=== PATIENT | female | born 1950 | race Caucasian/White ===

== ENCOUNTER → 2020-06-10 16:18 | Outpatient (BNVA) | payer MEDICARE, SELFPAY | PROVIDERS: Family Provider Family Medicine; PCP Family Medicine; Visit Provider Emergency Medicine | DX: R68.89 Other general symptoms and signs (principal); Z11.59 Encounter for screening for other viral diseases | CPT/HCPCS: 87400; 87635 ==

== ENCOUNTER 2022-05-14 18:49 | Emergency (ER) | payer MEDICARE, SELFPAY ==
[2022-05-14 18:55] VITALS: BP 148/78; PULSE 62; RESP 20; TEMP 37; O2SAT 96; BMI 40.6
--- NOTE | 2022-05-14 20:20 | ED_ITS ---
HPI - General Adult General: Chief complaint: General Medical Stated complaint: High Blood Pressure Time Seen by Provider: 05/14/22 20:20 History of Present Illness: Ms Webb is a 71-year-old lady with significant past medical history of anxiety and hypertension who presents to the emergency department due to concern over high blood pressure readings. She does report compliance with her medication regimen. She has recently completed a course of steroids and has noticed increased hunger. Over the past few days she has noticed far increased blood pressure compared to normal with systolic values greater than 200. This may also be exacerbated by stress she reports as she has had numerous stressors that has increased her anxiety. Symptoms currently improved with Klonopin taken earlier. Denies associated symptoms of hypertensive emergency with high blood pressure other than perhaps mild generalized weakness which is nonfocal and nausea. Overall course of symptoms has improved. Intensity at worst was mild to moderate. No other specific changes in health, exacerbating, or alleviating factors identified. Onset (ago): day(s) Relieving factors: medication Exacerbating factors: other Associated symptoms: Reports no associated symptoms Review of Systems General: Reports: 10 or more systems reviewed and unremarkable except in HPI and below PFSH ED PFSH: Medical History Asthma History of anxiety History of hypertension Surgical History H/O: hysterectomy History of hip surgery Social History Smoking and tobacco status: former smoker Alcohol intake: current Alcohol intake frequency: holidays/special occasions only History of recent travel: No Female Reproductive History: Spontaneous abortions: No Physical Exam Const: COMMON NORMALS: alert GENERAL APPEARANCE: cooperative and well developed HENMT: COMMON NORMALS: normocephalic and atraumatic HEAD & SCALP: normocephalic and atraumatic Eye: COMMON NORMALS: conjunctivae normal CONJUNCTIVA: Yes conjunctivae normal SCLERA: sclerae normal Neck/C-Spine: COMMON NORMALS: supple GENERAL: Yes trachea midline Resp: COMMON NORMALS: clear to auscultation bilaterally EFFORT & INSPECTION: Yes able to speak in complete sentences AUSCULTATION: clear to auscultation bilaterally Cardio: COMMON NORMALS: regular rate and regular rhythm RATE: regular rate RHYTHM: regular rhythm GI: COMMON NORMALS: Soft to palpation PALPATION: Yes Soft to palpation and No Tenderness to palpation present (GI) Extremity: GENERAL: Yes normal exam except as noted and No edema Neuro: COMMON NORMALS: moves all extremities SENSORIUM/ORIENTATION: Yes alert and No Orientation impaired Psych: COMMON NORMALS: mental status grossly normal and Normal thought process present THOUGHT PROCESS: Normal thought process present Course ED course: - Patient was seen and evaluated by me at bedside - Patient placed on cardiac monitors, IV access obtained - Initial evaluation notable for exam as above. EKG shows nonspecific ST segment abnormalities, no STEMI, sinus rhythm. - Labs and xrays personally interpreted by me -Patient's blood pressure appears improved however given pulm readings further evaluation is appropriate - Labs notable for no evidence of endorgan dysfunction - Imaging notable for no lobar consolidation or pneumothorax - Upon serial reexamination after treatment the patient was improved. She did request her home clonazepam and fluoxetine which were administered - Based on patient history, evaluation, and testing as interpreted the most likely cause of the patient's condition is hypertension of uncertain etiology improved upon ED evaluation - The results of ED evaluation were discussed with the patient including prescriptions and/or symptomatic cares (if applicable) including appropriate and responsible use, followup plan, and return precautions. The patient verbalized understanding and felt safe for discharge. - Patient discharged in satisfactory condition. Note: Click bubbles or prepopulated bee in note writing are used for assistance with data collection and billing and are inherently more limited than narrative and other text portions of this note. Please use narrative for additional clinical history and defer to narrative/free test for any case of contradictory information. If information appears in only free text or click bubble it should be considered present or absent as reported. Please contact note technical writer and editor f or clarifications of clinical information or contradictory information. MDM is a brief summary, contradictory or erroneous seeming information should be clarified and full note should be reviewed. Vital Signs: Vital signs: Vital Signs Temperature 98.6 F 05/14/22 18:55 Pulse Rate 76 05/14/22 23:39 Respiratory Rate 16 05/14/22 23:39 Blood Pressure 163/89 05/14/22 23:39 Pulse Oximetry 93 05/14/22 23:39 Oxygen Delivery Me thod 05/14/22 22:00 MDM - General Adult Medical Decision Making 71-year-old lady presenting with hypertension. Improved readings during ED evaluation. No evidence of endorgan dysfunction. Satisfactory for outpatient management. Medical Records I reviewed the patient's medical records. Lab Data I reviewed the patient's lab results. : 05/14/22 20:40 05/14/22 20:40 Radiology Impressions Chest X-Ray 05/14/22 20:29 IMPRESSION: 1. Negative for infiltrate. 2. Cardiomegaly. Laboratory Results WBC 8.0 10^3/uL (4.0-10.0) 05/14/22 20:40 RBC 4.85 10^6/uL (4.1-5.3) 05/14/22 20:40 Hgb 13.9 g/dL (11.5-15.3) 05/14/22 20:40 Hct 42.6 % (37.0-47.0) 05/14/22 20:40 MCV 87.8 fl (81-99) 05/14/22 20:40 MCH 28.7 pg (28.0-34.0) 05/14/22 20:40 MCHC 32.6 g/dL (30.0-36.0) 05/14/22 20:40 RDW 13.6 % (12.1-15.1) 05/14/22 20:40 Plt Count 204 10^3/cmm (130-400) 05/14/22 20:40 MPV 9.2 fL (7.4-10.4) 05/14/22 20:40 Neut % (Auto) 66.3 % 05/14/22 20:40 Lymph % (Auto) 23.7 % 05/14/22 20:40 [place] % (Auto) 6.0 % 05/14/22 20:40 Eos % (Auto) 3.3 % 05/14/22 20:40 Baso % (Auto) 0.6 % 05/14/22 20:40 Neut # (Auto) 5.30 10^3/uL (1.8-7.7) 05/14/22 20:40 Lymph # (Auto) 1.9 10^3/uL (0.8-4.8) 05/14/22 20:40 [place] # (Auto) 0.5 10^3/uL (0.2-0.9) 05/14/22 20:40 Eos # (Auto) 0.3 10^3/uL (0.0-0.8) 05/14/22 20:40 Baso # (Auto) 0.1 10^3/uL (0.0-0.1) 05/14/22 20:40 Nucleated RBC % (auto) 0 % 05/14/22 20:40 Nucleated RBCs # 0.0 /100WBC 05/14/22 20:40 Sodium 135 mmol/L (136-145) L 05/14/22 20:40 Potassium 4.0 mmol/L (3.5-5.1) 05/14/22 20:40 Chloride 96 mmol/L (98-107) L 05/14/22 20:40 Carbon Dioxide 28 mmol/L (22-29) 05/14/22 20:40 Anion Gap 15.0 (5-19) 05/14/22 20:40 BUN 16 mg/dL (8-23) 05/14/22 20:40 Creatinine 0.5 mg/dL (0.5-0.9) 05/14/22 20:40 GFR Calculation 122.0 mL/min (90-130) 05/14/22 20:40 Glucose 99 mg/dL (65-115) 05/14/22 20:40 Calculated Osmolality 281 mOsm/kg (285-295) L 05/14/22 20:40 Calcium 9.4 mg/dL (8.5-10.5) 05/14/22 20:40 Total Bilirubin 0.3 mg/dL (0.15-1.2) 05/14/22 20:40 AST 23 U/L (0-32) 05/14/22 20:40 ALT 25 U/L (0-33) 05/14/22 20:40 Alkaline Phosphatase 111 U/L (35-105) H 05/14/22 20:40 Troponin T Baseline 14 ng/L (0-10) H 05/14/22 20:40 Troponin T 120 Minute 13.02 ng/L (0-10) H 05/14/22 22:36 Delta Troponin T -0.98 ABS# (0-10) L 05/14/22 22:36 NT-Pro-B Natriuret Pep 281 pg/mL (0-125) H 05/14/22 20:40 Total Protein 6.8 g/dL (6.6-8.7) 05/14/22 20:40 Albumin 3.7 g/dL (3.5-5.2) 05/14/22 20:40 Globulin 3.1 g/dL (1.3-4.6) 05/14/22 20:40 Discharge Plan Discharge Patient Disposition: Home Clinical Impression: Hypertension, Anxiety Condition: Stable Prescriptions: New amlodipine 5 mg tablet 5 mg PO DAILY Qty: 30 0RF No Action fluticasone propionate [Allergy Relief (fluticasone)] 50 mcg/actuation spray,suspension 2 spray INTRANASAL DAILY Rx Instructions: administer into each nostril albuterol sulfate [Ventolin HFA] 90 mcg/actuation HFA aerosol inhaler 2 puff INHALATION Q6H PRN fluticasone propion-salmeterol [Advair Diskus] 100-50 mcg/dose blister with device 1 puff INHALATION BID albuterol sulfate 2.5 mg /3 mL (0.083 %) solution for nebulization 2.5 mg INHALATION Q4H PRN hydrochlorothiazide 25 mg tablet 25 mg PO DAILY fluoxetine 20 mg capsule 20 mg PO DAILY ibuprofen 800 mg tablet 800 mg PO Q8H Qty: 90 1RF amoxicillin-pot clavulanate 875-125 mg tablet 1 tab PO BID 10 Days Qty: 20 0RF Discharge Orders: Discharge ED (Routine); Ordered 05/14/22 Ordered By: Nabil Barajas Referrals: Joseph Brenner [Primary Care Provider] - Discharge Diet: Usual diet Discharge Activity: Increase activity as tolerated Patient Instructions: Stress (ED), Hypertension (ED) Activity Restrictions/Additional Instructions: Thank you for visiting the emergency department. You were seen and evaluated for high blood pressure. The exact cause of the symptoms is unclear though we are pleased that this improved prior to your arrival in the emergency department. I will add amlodipine to your medication regimen. Please follow-up with your primary care provider and keep a log as discussed for further management. Return to the emergency department for anything that you are concerned about and feel needs emergency department evaluation. Coding Level of Care Code ED Obstetrics Nurse Practitioner for Margaret Fwd Exam Comprehensive
[2022-05-14 20:21] VITALS: BP 166/86; PULSE 72; RESP 17; O2SAT 95
--- NOTE | 2022-05-14 20:29 | XRR_ITS ---
PROCEDURE INFORMATION: Exam: XR Chest Exam date and time: 05/14/2022 8:36 PM Age: 71 years old Clinical indication: Other: High blood pressure; Prior surgery; Surgery date: 6+ months; Surgery type: Breast reduction; Additional info: Hypertension TECHNIQUE: Imaging protocol: Radiologic exam of the chest. Views: 1 view. COMPARISON: CR XR chest 1V [id number] 08/27/2018 11:01 PM FINDINGS: Lungs: Unremarkable. No consolidation. Pleural spaces: Unremarkable. No pleural effusion. No pneumothorax. Heart/Mediastinum: Cardiomegaly. Bones/joints: Unremarkable. XR/XR chest 1V portable [id number] IMPRESSION: 1. Negative for infiltrate. 2. Cardiomegaly.
[2022-05-14 20:44] VITALS: BP 148/84; PULSE 69; RESP 16; O2SAT 92
[2022-05-14 20:51] LABS: Basophils # 0.1 10^3/uL (0.0-0.1); Basophils % 0.6 %; Eosinophils # 0.3 10^3/uL (0.0-0.8); Eosinophils % 3.3 %; Hematocrit 42.6 % (37.0-47.0); Hemoglobin 13.9 g/dL (11.5-15.3); Lymphocytes # 1.9 10^3/uL (0.8-4.8); Lymphocytes % 23.7 %; Mean Corpuscular HGB Conc 32.6 g/dL (30.0-36.0); Mean Corpuscular Hemoglobin 28.7 pg (28.0-34.0); Mean Corpuscular Volume 87.8 fl (81-99); Mean Platelet Volume 9.2 fL (7.4-10.4); Monocytes # 0.5 10^3/uL (0.2-0.9); Neutrophils % 66.3 %; Nucleated Red Blood Cells % 0 %; Platelet Count 204 10^3/cmm (130-400); Red Blood Count 4.85 10^6/uL (4.1-5.3); Red Cell Distribution Width 13.6 % (12.1-15.1)
[2022-05-14 21:16] LABS: Troponin(5th) Baseline 14 ng/L (0-10)
[2022-05-14 21:23] LABS: Alanine Aminotransferase 25 U/L (0-33); Albumin Level 3.7 g/dL (3.5-5.2); Alkaline Phosphatase 111 U/L (35-105); Aspartate Amino Transferase 23 U/L (0-32); Blood Urea Nitrogen 16 mg/dL (8-23); Calcium 9.4 mg/dL (8.5-10.5); Carbon Dioxide 28 mmol/L (22-29); Chloride 96 mmol/L (98-107); Globulin 3.1 g/dL (1.3-4.6); Glucose 99 mg/dL (65-115); NT Pro B Type Natriuretic Pept 281 pg/mL (0-125); Osmolality Calculated 281 mOsm/kg (285-295); Sodium 135 mmol/L (136-145); Total Bilirubin 0.3 mg/dL (0.15-1.2); Total Protein 6.8 g/dL (6.6-8.7)
[2022-05-14 21:50] VITALS: BP 131/74; PULSE 80; RESP 20; O2SAT 92
[2022-05-14 22:00] VITALS: PULSE 80; O2SAT 94
--- NOTE | 2022-05-14 22:21 | ECG_ITS ---
[facility] Test Date: 2022-05-14 Pat Name: Josselyn Webb Department: Room: Gender: Female Sandblast Operator: : 1950 Requested By: Nabil Barajas Order Number: [id number] Milly MD: Colton Vences M.D. Measurements Intervals [place] Rate: 72 P: 51 [place]: 204 QRS: 38 QRSD: 94 T: 27 QT: 369 QTc: 405 Interpretive Statements SINUS RHYTHM NONSPECIFIC ST & T-WAVE ABNORMALITY Compared to ECG 08/27/2018 23:24:34 No significant changes Electronically Signed On 05-16-2022 8:18:54 CDT by Colton Vences M.D. [id number]
[2022-05-14 23:00] LABS: Troponin 5 2HR 13.02 ng/L (0-10)
[2022-05-14 23:09] LABS: Troponin 5 2HR Delta -0.98 ABS# (0-10)
[2022-05-14] MEDS: CLONazepam 0.5 mg Tablet PO (23:19)
[2022-05-14] MEDS: fluoxetine 20 mg Capsule 40 MG PO (23:19)
[2022-05-14 23:39] VITALS: BP 163/89; PULSE 76; RESP 16; O2SAT 93
== END 2022-05-14 23:40 | disposition home or self-care (01) ==
PROVIDERS: Emergency Provider Emergency Medicine; PCP Family Medicine
DX: I10 Essential (primary) hypertension (principal); F41.9 Anxiety disorder, unspecified; Z87.891 Personal history of nicotine dependence
CPT/HCPCS: 71045; 80053; 83880; 84484; 85025; 93005; 99285

== ENCOUNTER → 2023-03-24 12:28 | Outpatient (BNVA) | payer MEDICARE, SELFPAY | PROVIDERS: PCP Family Medicine; Visit Provider Nurse Practitioner Family | DX: R39.9 Unspecified symptoms and signs involving the genitourinary system (principal); R31.9 Hematuria, unspecified | CPT/HCPCS: 81000; 87086 ==

== ENCOUNTER → 2023-04-05 10:59 | Outpatient (BNVA) | payer MEDICARE, SELFPAY | PROVIDERS: PCP Family Medicine; Visit Provider Otolaryngology | DX: Z71.1 Person with feared health complaint in whom no diagnosis is made (principal); E66.9 Obesity, unspecified; Z68.41 Body mass index [BMI] 40.0-44.9, adult | CPT/HCPCS: 99202; 99203 ==

== ENCOUNTER 2024-10-04 18:40 | Emergency (ER) | payer MEDICARE, SELFPAY ==
[2024-10-04 18:45] VITALS: BP 161/82; PULSE 64; RESP 18; TEMP 36.3; O2SAT 96
--- NOTE | 2024-10-04 19:19 | ECG_ITS ---
[facility] Test Date: 2024-10-04 Pat Name: Josselyn Webb Department: Room: Gender: Female Book Agent: : 1950 Requested By: Maxime Epstein Order Number: [id number] Reading MD: Measurements Intervals [place] Rate: 56 P: 56 [place]: 196 QRS: 47 QRSD: 98 T: 17 QT: 410 QTc: 396 Interpretive Statements SINUS BRADYCARDIA POSSIBLE LEFT ATRIAL ENLARGEMENT [-0.1mV P-WAVE IN V1/V2] LOW QRS VOLTAGE IN PRECORDIAL LEADS [QRS DEFLECTION < 1.0 mV IN CHEST LEADS] NONSPECIFIC T-WAVE ABNORMALITY [email or web address]
--- NOTE | 2024-10-04 19:19 | W.ED.PSYCHS ---
HPI - Psych General: Chief Complaint: Psychiatric Symptoms Stated Complaint: Depressed Time Seen by Provider: 10/04/24 18:49 History of Present Illness: 74-year-old female with a history of depression. She has 1 prior admission several years ago in [place] for depression. She presents after an argument with her 91-year-old who is in poor health. She became angry, frustrated, and her depression is increased. She has had thoughts of suicide, but has not formed a plan or acted on them because of her Evangelical beliefs mainly. He is here for help. No active hallucinations. Related Data Home Medications ?Medication ?Instructions ?Recorded ?Confirmed albuterol sulfate 2.5 mg/3 mL 2.5 mg inhalation Q4H PRN 09/12/19 04/19/24 (0.083 %) solution for nebulization albuterol sulfate 90 mcg/actuation 2 puff inhalation Q6H PRN 09/12/19 04/19/24 aerosol inhaler (Ventolin HFA) fluticasone 100 mcg-salmeterol 50 1 puff inhalation BID 09/12/19 04/19/24 mcg/dose blistr powdr for inhalation (Advair Diskus) hydrochlorothiazide 25 mg tablet 25 mg PO DAILY 09/12/19 04/19/24 fluticasone propionate 50 2 spray intranasal DAILY 06/10/20 04/19/24 mcg/actuation nasal spray,suspension (Allergy Relief (fluticasone)) cetirizine 10 mg capsule (All Day 10 mg PO DAILY PRN 04/05/23 04/19/24 Allergy (cetirizine)) cholecalciferol (vitamin D3) 125 125 mcg PO DAILY 04/05/23 04/19/24 mcg (5,000 unit) capsule clonazepam 0.5 mg tablet 0.5 mg PO TID 04/05/23 04/19/24 losartan 50 mg tablet 50 mg PO DAILY 04/05/23 04/19/24 rosuvastatin 10 mg tablet 10 mg PO DAILY 04/05/23 04/19/24 tramadol 50 mg tablet 50 mg PO BID PRN 04/05/23 04/19/24 famotidine 20 mg tablet 20 mg PO DAILY 04/19/24 04/19/24 potassium chloride 20 mEq 20 meq PO DAILY 04/19/24 04/19/24 tablet,extended release(part/cryst) Previous Rx's ?Medication ?Instructions ?Recorded ibuprofen 800 mg tablet 800 mg PO Q8H #90 tabs 09/12/19 amlodipine 5 mg tablet 5 mg PO DAILY #30 tabs 05/14/22 fluoxetine 20 mg capsule 20 mg PO TID #30 caps 04/19/24 Allergies Allergy/AdvReac Type Severity Reaction Status Date / Time benzonatate (From Tessalon Allergy Intermediate ADR-Agitate Verified 10/04/24 19:01 Maryam) d lisinopril Allergy Mild ALGY-Rash Verified 10/04/24 19:01 montelukast (From Singulair) Allergy Mild Unknown Verified 10/04/24 19:01 prednisone AdvReac Mild ADR-Irritab Verified 10/04/24 19:01 le [facility] ED PFSH: Medical History History of anxiety History of hypertension Asthma Surgical History Status post breast reduction History of hip surgery H/O: hysterectomy Social History Smoking and tobacco/nicotine status: former use of tobacco/nicotine Alcohol intake: current Alcohol intake frequency: holidays/special occasions only Substance/Drug Use: never Female Reproductive History: Spontaneous abortions: No Physical Exam Const: COMMON NORMALS: no acute distress GENERAL APPEARANCE: cooperative; not well kempt, not ill appearing and not frail appearing HENMT: COMMON NORMALS: normocephalic, atraumatic and Normal external nose present HEAD & SCALP: normocephalic and atraumatic FACE & SINUS: normal facial exam and face symmetric NOSE: Normal external nose present Eye: COMMON NORMALS: Equal, round and reactive pupils present and EOMs intact bilaterally PUPIL: Yes Equal, round and reactive pupils present Neck/C-Spine: GENERAL: Yes trachea midline Chest: CHEST: Yes Symmetrical chest wall rise Resp: COMMON NORMALS: normal respiratory effort, No retractions, No use of accessory muscles and clear to auscultation bilaterally AUSCULTATION: clear to auscultation bilaterally Cardio: COMMON NORMALS: regular rate and regular rhythm RATE: regular rate RHYTHM: regular rhythm GI: COMMON NORMALS: Normal to inspection, nondistended, normoactive bowel sounds present Extremity: COMMON NORMALS: no pedal edema Neuro: LASHANDA COMA SCALE: document GCS findings Lashanda coma scale eye opening: Spontaneous [place]anda coma scale verbal response: Orientated [place] coma scale motor response: [place] commands Lashanda coma scale total score: 15 SENSORY EXAM: Yes extremities (intact) Psych: COMMON NORMALS: speech normal APPEARANCE: No well kempt SPEECH: Yes normal speech Skin: COMMON NORMALS: no rashes or lesions noted GENERAL SKIN EXAM: no rashes or lesions noted Course Vital Signs: Vital signs: Vital Signs Temperature 97.4 F L 10/04/24 18:45 Pulse Rate 65 10/05/24 00:00 Respiratory Rate 16 10/05/24 00:00 Blood Pressure 156/74 10/05/24 00:00 Pulse Oximetry 95 10/05/24 00:00 Oxygen Delivery Me thod Room Air 10/04/24 18:45 MDM - Psych Medical Decision Making [place], awake, and alert 74-year-old female with depression, and at least passive thoughts of suicide. She would benefit from inpatient admission, evaluation and treatment. Medically she appears stable. This patient has changed her mind. She is in fact no longer suicidal. She would like to go home and see her . She maintains that she will not harm herself or anyone else. She will be allowed discharge. She remains medically stable. Lab Data 10/04/24 19:38 10/04/24 19:38 Laboratory Results WBC 6.45 10^3/uL (3.29-11.43) 10/04/24 19:38 RBC 4.88 10^6/uL (3.85-5.65) 10/04/24 19:38 Hgb 14.10 g/dL (11.27-16.99) 10/04/24 19:38 Hct 44.4 % (36-47) 10/04/24 19:38 MCV 91.0 fl (85-98) 10/04/24 19:38 MCH 28.9 pg (27-33) 10/04/24 19:38 MCHC 31.8 g/dL (30-55) 10/04/24 19:38 RDW 13.3 % (12.1-15.1) 10/04/24 19:38 Plt Count 216 10^3/cmm (157-399) 10/04/24 19:38 MPV 10.6 fL (7.4-10.4) H 10/04/24 19:38 Neut % (Auto) 58.8 % 10/04/24 19:38 Lymph % (Auto) 30.5 % 10/04/24 19:38 [place] % (Auto) 6.8 % 10/04/24 19:38 Eos % (Auto) 2.8 % 10/04/24 19:38 Baso % (Auto) 0.8 % 10/04/24 19:38 Neut # (Auto) 3.79 10^3/uL (1.8-7.7) 10/04/24 19:38 Lymph # (Auto) 2.0 10^3/uL (0.8-4.8) 10/04/24 19:38 [place] # (Auto) 0.4 10^3/uL (0.2-0.9) 10/04/24 19:38 Eos # (Auto) 0.2 10^3/uL (0.0-0.8) 10/04/24 19:38 Baso # (Auto) 0.1 10^3/uL (0.0-0.1) 10/04/24 19:38 Nucleated RBC % (auto) 0 % 10/04/24 19:38 Nucleated RBCs # 0.0 /100WBC 10/04/24 19:38 Sodium 136 mmol/L (136-145) 10/04/24 19:38 Potassium 3.8 mmol/L (3.5-5.1) 10/04/24 19:38 Chloride 95 mmol/L (98-107) L 10/04/24 19:38 Carbon Dioxide 33 mmol/L (22-29) H 10/04/24 19:38 Anion Gap 11.8 (5-19) 10/04/24 19:38 BUN 15 mg/dL (8-23) 10/04/24 19:38 Creatinine 0.5 mg/dL (0.5-0.9) 10/04/24 19:38 GFR Calculation Not Reportable 10/04/24 19:38 Glucose 99 mg/dL (65-115) 10/04/24 19:38 Calculated Osmolality 283 mOsm/kg (285-295) L 10/04/24 19:38 Calcium 9.5 mg/dL (8.5-10.5) 10/04/24 19:38 Total Bilirubin 0.4 mg/dL (0.15-1.2) 10/04/24 19:38 AST 22 U/L (0-32) 10/04/24 19:38 ALT 21 U/L (0-33) 10/04/24 19:38 Alkaline Phosphatase 105 U/L (35-105) 10/04/24 19:38 Total Protein 6.7 g/dL (6.6-8.7) 10/04/24 19:38 Albumin 4.0 g/dL (3.5-5.2) 10/04/24 19:38 Globulin 2.7 g/dL (1.3-4.6) 10/04/24 19:38 TSH 1.76 uIU/mL (0.27-4.20) 10/04/24 19:38 Urine Color Yellow (Yellow) 10/04/24 19:32 Urine Appearance Clear (CLEAR) 10/04/24 19:32 Urine pH 7.0 (5-7) 10/04/24 19:32 Ur Specific [place] 1.012 (1.005-1.030) 10/04/24 19:32 Urine Protein Negative (Negative) 10/04/24 19:32 Urine Glucose (UA) Negative (Normal) 10/04/24 19:32 Urine Ketones Negative (Negative) 10/04/24 19:32 Urine Blood Negative (Negative) 10/04/24 19:32 Urine Nitrate Negative (Negative) 10/04/24 19:32 Urine Bilirubin Negative (Negative) 10/04/24 19:32 Urine Urobilinogen 0.2 mg/dL (Negative) 10/04/24 19:32 Ur Leukocyte Esterase Negative (Negative) 10/04/24 19:32 Amorphous Sediment Not Reportable 10/04/24 19:32 Salicylates 0.5 mg/dL (3-10) L 10/04/24 19:38 Urine Opiates Screen Negative ng/mL (Negative) 10/04/24 19:32 Acetaminophen 7.5 ug/mL (10-30) L 10/04/24 19:38 Ur Barbiturates Screen Negative ng/mL (Negative) 10/04/24 19:32 Ur Phencyclidine Scrn Negative ng/mL (Negative) 10/04/24 19:32 Ur Amphetamines Screen Negative ng/mL (Negative) 10/04/24 19:32 U Benzodiazepines Scrn Positive ng/mL (Negative) H 10/04/24 19:32 Urine Cocaine Screen Negative ng/mL (Negative) 10/04/24 19:32 U Marijuana (THC) Screen Negative ng/mL (Negative) 10/04/24 19:32 Ethyl Alcohol < 10 mg/dL (0-10) 10/04/24 19:38 Influenza A (PCR) Negative (Negative) 10/04/24 19:35 Influenza Type B (PCR) Negative (Negative) 10/04/24 19:35 RSV (PCR) Negative (Negative) 10/04/24 19:35 SARS-CoV-2 (PCR) Negative (Negative) 10/04/24 19:35 No radiology studies performed this visit Discharge Plan Discharge Patient Disposition: Home Clinical Impression: Depression Condition: Stable Prescriptions: No Action fluticasone propionate [Allergy Relief (fluticasone)] 50 mcg/actuation spray,suspension 2 spray INTRANASAL DAILY Rx Instructions: administer into each nostril albuterol sulfate [Ventolin HFA] 90 mcg/actuation HFA aerosol inhaler 2 puff INHALATION Q6H PRN fluticasone propion-salmeterol [Advair Diskus] 100-50 mcg/dose blister with device 1 puff INHALATION BID albuterol sulfate 2.5 mg /3 mL (0.083 %) solution for nebulization 2.5 mg INHALATION Q4H PRN hydrochlorothiazide 25 mg tablet 25 mg PO DAILY ibuprofen 800 mg tablet 800 mg PO Q8H Qty: 90 1RF tramadol 50 mg tablet 50 mg PO BID PRN clonazepam 0.5 mg tablet 0.5 mg PO TID All Day Allergy (cetirizine) 10 mg capsule 10 mg PO DAILY PRN losartan 50 mg tablet 50 mg PO DAILY rosuvastatin 10 mg tablet 10 mg PO DAILY cholecalciferol (vitamin D3) 125 mcg (5,000 unit) capsule 125 mcg PO DAILY potassium chloride 20 mEq tablet,ER particles/crystals 20 meq PO DAILY famotidine 20 mg tablet 20 mg PO DAILY fluoxetine 20 mg capsule 20 mg PO TID Qty: 30 0RF amlodipine 5 mg tablet 5 mg PO DAILY Qty: 30 0RF Discharge Orders: Discharge ED (Routine); Ordered 10/05/24 Ordered By: Maxime Moon Referrals: Amari Castro MD [Primary Care Provider] - 1-3 days Patient Instructions: Depression (ED), Opioid Safety, Pain Management Activity Restrictions/Additional Instructions: Return for any thoughts or wishes to harm your self or anyone else. Call your doctor later this morning for a follow-up appointment. Print Language: Mongolian Coding Level of Care Code ED Flyer Maker for Margaret Sutherland
[2024-10-04 19:47] LABS: Add Urine Microscopic? NO
[2024-10-04 19:50] LABS: Bilirubin Urine Negative (Negative); Blood Urine Negative (Negative); Glucose Urine UA Negative (Normal); Ketones Urine Negative (Negative); Leukocyte Esterase Urine Negative (Negative); Nitrate Urine Negative (Negative); Protein Urine Negative (Negative); Specific Gravity, Urine 1.012 (1.005-1.030); Urine Appearance Clear (CLEAR); Urine Color Yellow (Yellow); Urobilinogen Urine 0.2 mg/dL (Negative)
[2024-10-04 19:58] LABS: Amphetamines Screen Urine Negative (Negative); Barbiturates Screen Urine Negative (Negative); Benzodiazepines Screen Urine Positive (Negative); Cocaine Screen Urine Negative (Negative); Opiate Screen Urine Negative (Negative); PCP Screen Urine Negative (Negative); THC Screen Urine Negative (Negative)
[2024-10-04 20:07] LABS: Basophils # 0.1 10^3/uL (0.0-0.1); Basophils % 0.8 %; Eosinophils # 0.2 10^3/uL (0.0-0.8); Eosinophils % 2.8 %; Hematocrit 44.4 % (36-47); Lymphocytes % 30.5 %; Mean Corpuscular HGB Conc 31.8 g/dL (30-55); Mean Corpuscular Hemoglobin 28.9 pg (27-33); Mean Platelet Volume 10.6 fL (7.4-10.4); Monocytes # 0.4 10^3/uL (0.2-0.9); Monocytes % 6.8 %; Neutrophils # 3.79 10^3/uL (1.8-7.7); Neutrophils % 58.8 %; Nucleated Red Blood Cells % 0 %; Platelet Count 216 10^3/cmm (157-399); Red Blood Count 4.88 10^6/uL (3.85-5.65); Red Cell Distribution Width 13.3 % (12.1-15.1); White Blood Count 6.45 10^3/uL (3.29-11.43)
[2024-10-04 20:13] LABS: Acetaminophen 7.5 ug/mL (10-30); Alanine Aminotransferase 21 U/L (0-33); Alkaline Phosphatase 105 U/L (35-105); Anion Gap 11.8 (5-19); Aspartate Amino Transferase 22 U/L (0-32); Blood Urea Nitrogen 15 mg/dL (8-23); Calcium 9.5 mg/dL (8.5-10.5); Carbon Dioxide 33 mmol/L (22-29); Chloride 95 mmol/L (98-107); Creatinine Clr Calc Pharmacy 80.9228; Globulin 2.7 g/dL (1.3-4.6); Glucose 99 mg/dL (65-115); Osmolality Calculated 283 mOsm/kg (285-295); Potassium 3.8 mmol/L (3.5-5.1); Salicylate 0.5 mg/dL (3-10); Sodium 136 mmol/L (136-145); Thyroid Stimulating Hormone 1.76 uIU/mL (0.27-4.20); Total Bilirubin 0.4 mg/dL (0.15-1.2); Total Protein 6.7 g/dL (6.6-8.7)
[2024-10-04 20:14] LABS: Alcohol Level < 10 mg/dL (0-10)
[2024-10-04 20:45] LABS: Influenza A NEGATIVE (Negative); Influenza B NEGATIVE (Negative); Respiratory Syncytial Virus Ce NEGATIVE (Negative); SARS-CoV-2 PCR NEGATIVE (Negative)
[2024-10-04 20:49] LABS: Charge for UA Resulting for Rev
[2024-10-05] VITALS: BP 156/74; PULSE 65; RESP 16; O2SAT 95
== END 2024-10-05 03:02 | disposition home or self-care (01) ==
PROVIDERS: Emergency Provider Emergency Medicine; PCP Family Medicine
DX: F32.A Depression, unspecified (principal); Z11.52 Encounter for screening for COVID-19; Z87.891 Personal history of nicotine dependence; I10 Essential (primary) hypertension
CPT/HCPCS: 36415; 80053; 80306; 80307; 81003; 84443; 85025; 87637; 93005; 99284

== ENCOUNTER 2025-02-13 16:08 | Emergency (ER) | payer MEDICARE, SELFPAY ==
[2025-02-13 16:16] VITALS: BP 133/65; PULSE 60; RESP 16; TEMP 36.7; O2SAT 96; BMI 38.7
--- OUTSIDE RECORDS SUMMARY | 2025-02-13 16:17 | XMS_ITS | Encounter Summary ---
Author Organization [facility] Address [address] [facility] [place] [address] Care Team Providers Care Principal Gifts Officer Name Role Phone Joseph Brenner MD Primary Care Provider [phone] Encounter Details Date Type Department Care Team (Latest Contact Info) Description 05/19/2003 Outpatient Historical [address] [phone] Betty Moses MD [address], [id number] ACUTE FRONTAL SINUSITIS (Primary Dx); OTALGIA NOS Social History Tobacco Use Types Packs/Day Years Used Date Smoking Tobacco: Never Assessed Comments Unknown Sex and Gender Information Value Date Recorded Sex Assigned at Not on file 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
--- OUTSIDE RECORDS SUMMARY | 2025-02-13 16:17 | XMS_ITS | Encounter Summary ---
Author Organization [facility] Address [address] [facility] [place] [address] Care Team Providers Care Rerolling Machine Operator Name Role Phone Joseph Brenner MD Primary Care Provider [phone] Encounter Details Date Type Department Care Team (Latest Contact Info) Description 12/07/2005 Outpatient Historical [facility] Medicine [place] [address] [place] [phone] Ora Smith MD [facility] [place], [place] [id number] Unspecified Disorder of Skin and Subcutaneous Tissue (Primary Dx) Social History Tobacco Use Types Packs/Day Years Used Date Smoking Tobacco: Never Assessed Comments Unknown Sex and Gender Information Value Date Recorded Sex Assigned at Not on file 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
--- OUTSIDE RECORDS SUMMARY | 2025-02-13 16:17 | XMS_ITS | Encounter Summary ---
Author Organization [facility] Address [address] [facility] [place] [place] [address] Care Team Providers Care Inspector Toys Name Role Phone Joseph Brenner MD Primary Care Provider [phone] Encounter Details Date Type Department Care Team (Latest Contact Info) Description 09/11/2006 Outpatient Historical [facility] Medicine [place] [address] [place] [phone] Vicky Peterson MD [address] [place] [phone] Vaccine for influenza (Primary Dx) Social History Tobacco Use Types Packs/Day Years Used Date Smoking Tobacco: Never Assessed Comments Unknown Sex and Gender Information Value Date Recorded Sex Assigned at Not on file Legal Sex Female 6:33 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
--- OUTSIDE RECORDS SUMMARY | 2025-02-13 16:17 | XMS_ITS | Encounter Summary ---
Author Organization [facility] Address [address] [facility] [place] [address] Care Team Providers Care Telephone Lineworker Name Role Phone Joseph Brenner MD Primary Care Provider [phone] Encounter Details Date Type Department Care Team (Latest Contact Info) Description 08/16/2006 Outpatient Historical [facility] Medicine [place] [address] [place] [phone] Ora Smith MD [address] [place], [place] [id number] Contusion of Knee (Primary Dx); Sprain and Strain of Unspecified Site of Wrist Social History Tobacco Use Types Packs/Day Years Used Date Smoking Tobacco: Never Assessed Comments Unknown Sex and Gender Information Value Date Recorded Sex Assigned at Not on file Legal Sex Female 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
--- OUTSIDE RECORDS SUMMARY | 2025-02-13 16:17 | XMS_ITS | Encounter Summary ---
Author Organization [facility] Address [address] [place] [facility] [place] [address] Care Team Providers Care Legal Document Assistant Name Role Phone Joseph Brenner MD Primary Care Provider [phone] Encounter Details Date Type Department Care Team (Latest Contact Info) Description 12/14/2005 Outpatient Historical [facility] Medicine [place] [address] [place] [phone] Ora Smith MD [facility] [place], [place] [phone] Benign Neoplasm of Skin, Site Unspecified (Primary Dx) Social History Tobacco Use Types Packs/Day Years Used Date Smoking Tobacco: Never Assessed Comments Unknown Sex and Gender Information Value Date Recorded Sex Assigned at Not on file Legal Sex Female 6:33 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
--- OUTSIDE RECORDS SUMMARY | 2025-02-13 16:17 | XMS_ITS | Encounter Summary ---
Author Organization [facility] Address [address] [place] [address] Care Team Providers Care Seam Stay Stitcher Name Role Phone Joseph Brenner MD Primary Care Provider [phone] Encounter Details Date Type Department Care Team (Late st Contact Info) Description 03/13/[address] [facility] [address] [facility] [address] [place] [address] Erna Buchanan, MAILROOM SUPERVISOR [address] [place] [phone] Visit for screening mammogram (Primary Dx) Social History Tobacco Use Types Packs/Day Years Used Date Smoking Tobacco: Former Cigarettes 0.3 15 1 - 05/31/1989 Smokeless Tobacco: Never Alcohol Use Standard Drinks/Week Comments Yes 0 (1 standard drink = 0.6 oz pur e alcohol) 1 glass wine monthly Comments No Sex and Gender Information Value Date Recorded Sex Assigned at Not on file Legal Sex Female 6:33 AM APPLICATION SECURITY ARCHITECT Gender Identity Not on file Sexual Orientation Not on file documented as of this encounter Plan of Treatment Not on file documented as of this encounter Results * MAMMO PRIOR STUDY (10/15/2007 11:45 AM CDT) Narrative 03/13/2016 11:41 AM CDT This exam was auto finalized to allow images to be scanned to PACS. us Erna Buchanan MAILROOM SUPERVISOR DIAGNOSTIC IMAGING ORDERABLES Final Result * MAMMO PRIOR STUDY (09/11/2006 11:45 AM APPLICATION SECURITY ARCHITECT) Narrative 03/13/2016 11:42 AM CDT This exam was auto finalized to allow images to be scanned to PACS. us Erna J Dewayne MAILROOM SUPERVISOR DIAGNOSTIC IMAGING ORDERABLES Final Result documented in this encounter Visit Diagnoses Diagnosis Visit for screening mammogram Other screening mammogram Visit for screening mammogram Other screening mammogram Visit for screening mammogram- Primary Other screening mammogram documented in this encounter Care Teams Seam Stay Stitcher Relationship Specialty Start Date End Date Joseph Brenner MD [address] [place] [phone] PCP - General Family Practice 03/09/15 documented as of this encounter
--- OUTSIDE RECORDS SUMMARY | 2025-02-13 16:17 | XMS_ITS | Encounter Summary ---
Author Organization [facility] Address [address] [place] [facility] [place] [address] Care Team Providers Care Wound Nurse Name Role Phone Joseph Brenner MD Primary Care Provider [phone] Encounter Details Date Type Department Care Team (Latest Contact Info) Description 04/30/2003 Outpatient Historical [facility] Medicine [place] [address] [phone] Betty Moses MD [address], [address] ASTHMA UNSPECIFIED (Primary Dx); GENERALIZED ANXIETY DIS; NEUROTIC DEPRESSION Social History Tobacco Use Types Packs/Day Years Used Date Smoking Tobacco: Never Assessed Comments Unknown Sex and Gender Information Value Date Recorded Sex Assigned at Not on file Legal Sex Female 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
--- OUTSIDE RECORDS SUMMARY | 2025-02-13 16:17 | XMS_ITS | Encounter Summary ---
Author Organization [facility] Address [address] [place] [facility] [place] [address] Care Team Providers Care Gasser Machine Operator Name Role Phone Joseph Brenner MD Primary Care Provider [phone] Encounter Details Date Type Department Care Team (Latest Contact Info) Description 11/01/2006 Outpatient Historical [facility] [address] [place] [phone] Noel Moeller, FIRE HAZARD INSPECTOR [address] [place] [address] Other Malaise and Fatigue (Primary Dx); Allergic Rhinitis, Cause Unspecified Social History Tobacco Use Types Packs/Day Years Used Date Smoking Tobacco: Never Assessed Comments Unknown Sex and Gender Information Value Date Recorded Sex Assigned at Not on file Legal Sex Female 6:33 AM 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
--- OUTSIDE RECORDS SUMMARY | 2025-02-13 16:17 | XMS_ITS | Encounter Summary ---
Author Organization [facility] Address [address] 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 This is the recommendation of the National Cholesterol Education Program (NCEP-ATPIII). CHOLESTEROL 217(H) 0 - 200 mg/dL [facility] Comment: On 12/08/2007 [facility] changed the cholesterol reference range to 0-200 mg/dl. This is the recommendation of the National Cholesterol Education Program (NCEP-ATPIII). GLUCOSE 93 70 - 110 mg/dL [facility] CALCULATED TOTAL CHOLESTEROL TO HDL RATIO 4.02 3.27 - 4.44 [facility] TRIGLYCERIDE 97 0 - 150 mg/dL [facility] Comment: On 12/08/2007, [facility] changed the triglyceride reference range to 0-150 mg/dl. This is the recommendation of the National Cholesterol Education Program (NCEP-ATPIII). HDL 54 40 - 60 mg/dL [facility] Blood specimen (specimen) 12/09/2007 8:30 AM CDT 12/09/2007 4:01 PM CDT us Lowell Yousif MD CHEMISTRY ORDERABLES Final Res ult [facility] [address] [place] [address] documented in this encounter Visit Diagnoses Not on filedocumented in this encounter Care Teams Fund Accountant Relationship Specialty Start Date End Date Joseph Brenner MD [address] [place] [phone] PCP - General Family Practice 03/09/15 documented as of this encounter
--- OUTSIDE RECORDS SUMMARY | 2025-02-13 16:17 | XMS_ITS | Clinical Summary ---
Author Organization [facility] [address] [facility] Address [address] [facility] [place] [address] Care Team Providers Care Fighter Pilot Name Role Phone Joseph Brenner MD Primary Care Provider Allergies Active Allergy Reactions Criticality Noted Date Comments Lisinopril Rash Low 06/10/2008 Montelukast Other (See Comments) 11/24/2015 depression Naproxen Headache Low 11/12/2012 From 09/2012 to 11/2012 every time she takes the Naproxen 500 mg she gets a Headache in the evening. Prednisone Anxiety Low 09/22/2015 Shellfish Containing Products Swelling Medium 10/26/2015 Sneezing and runny nose Sulfa (Sulfonamide Antibiotics) Nausea and Vomiting Low 03/10/2009 Medications MULTI-VITAMIN PO Take 1 Tablet by mouth 2 times daily . Active OTHER Cpap with supplies. Continue present settings 1 Each 0 4 Active acetaminophen (TYLENOL) 325 mg tablet Take 325 mg by mouth every 4 hours as needed. Active blood glucose control, low (TRUE METRIX LEVEL 1) Solution Use to calibrate meter. 5 mL 5 8 Active Blood-Glucose Meter (TRUE METRIX AIR GLUCOSE METER) Use to check blood sugar as needed. 1 Device 8 Active TRUE METRIX AIR GLUCOSE METER Kit USE DIRECTED TO CHECK BLOOD SUGAR NEEDED 1 Kit 0 Active cetirizine (ZyrTEC) 10 mg tabletIndication s:Environmental allergies TAKE ONE TABLET AT BEDTIME 30 Tablet 3 0 Active omeprazole (PriLOSEC) 20 mg Capsule, Delayed Release(E.C.)Ind ications:Gastroe sophageal reflux disease without esophagitis TAKE ONE CAPSULE BY MOUTH DAILY 30 Capsule 3 0 Active aspirin-acetamin ophen-caffeine (EXCEDRIN EXTRA STRENGTH) 250-250-65 mg Tablet Take 1 Tablet by mouth every 4 hours as needed for Headaches. Active Lactobac no.30-Bifidobact no.4 (Ultimate Kathy Probiotic) 30 billion cell Capsule, Delayed Release(E.C.) Take 1 Capsule by mouth daily. Active nystatin (NYSTOP) 100,000 unit/gram powderIndication s:Skin yeast infection Apply to affected area 2 times daily. 1 Gram 1 0 Active albuterol (PROVENTIL,ROSALIND CRISTINO) 2.5 mg /3 mL (0.083 %) Solution for NebulizationIndi cations:Mild intermittent asthma without complication USE ONE VIAL IN NEBULIZER EVERY 4 HOURS NEEDED FOR SHORTNESS OF BREATH OR WHEEZING 300 mL 3 0 Active mupirocin (BACTROBAN) 2 % Ointment Apply to affected area 2 times daily. 22 Gram 3 0 Active fluticasone propionate (FLONASE) 50 mcg/spray [place], Suspension nasal inhaler Administer 2 Sprays in each nostril daily. 48 Gram 6 0 Active blood sugar diagnostic (True Metrix Glucose Test Strip) Strip Use to check blood sugar as needed. 200 Each 5 0 Active lancets (TRUEplus Lancets) 33 gauge Use as needed to obtain blood sample for testing 200 Each 0 Active alcohol (BD Single Use Swabs Regular) Pads, Medicated USE TO CLEAN FINGER BEFORE OBTAINING SAMPLE DIRECTED 300 Each 5 0 Active FLUoxetine (PROzac) 20 mg capsule TAKE 1 CAPSULE THREE TO FOUR TIMES PER DAY -- DOSE UPDATED. SEE PHONE ENCOUNTERS 06 29 20 180 Capsule 3 0 Active Advair Diskus 250-50 mcg/dose disk inhalerIndicatio ns:Mild intermittent asthma without complication 1 PUFF(S) TWICE A DAY 1 Each 5 1 Active losartan (COZAAR) 50 mg tablet TAKE ONE TABLET BY MOUTH EVERY DAY 90 Tablet 2 1 Active albuterol HFA 90 mcg inhalerIndicatio ns:Mild intermittent asthma without complication TAKE 2 PUFFS BY INHALATION EVERY 6 HOURS NEEDED FOR WHEEZING. SHOULD LAST LONGER THAN 1 MONTH. 18 Gram 1 1 Active fluconazole (DIFLUCAN) 150 mg tabletIndication s:Skin yeast infection Take 1 Tablet (150 mg) by mouth daily. Repeat in 72 hours if symptoms have not resolved. 2 Tablet 1 1 Active clonazePAM (KlonoPIN) 0.5 mg TabletIndication s:Generalized anxiety disorder Take 1 Tablet (0.5 mg) by mouth 3 times daily as needed for Anxiety. *NEEDS APPOINTMENT BEFORE NEXT REFILL* 60 Tablet 1 Active ibuprofen (MOTRIN) 800 mg tablet TAKE ONE TABLET BY MOUTH EVERY 6 HOURS NEEDED FOR PAIN (PAIN) 60 Tablet 1 Active hydroCHLOROthiaz felicitas 25 mg tablet TAKE 1 TABLET EVERY DAY 90 Tablet 1 Active Active Problems Problem Noted Date Diagnosed Date Allergic rhinitis 02/01/2020 Cat scratch 02/01/2020 Primary osteoarthritis of right knee 02/01/2020 Ambulates with cane 10/02/2019 Gait instability 10/02/2019 Vitamin D deficiency 11/05/2018 Mild intermittent asthma without complication Hypercholesteremia 11/11/2017 Hyperglycemia 11/11/2017 Chronic bilateral low back pain without sciatica 11/11/2017 Arthritis of right hip 05/31/2016 Severe obesity (BMI 35.0-39.9) with comorbidity 10/26/2015 QUINTON on CPAP 10/26/2015 RUQ abdominal pain 09/19/2010 Recurrent major depressive disorder, in partial remission 09/19/2010 Generalized anxiety disorder 09/19/2010 S/P hysterectomy 09/19/2010 Overview (12/25/2010): Had complete hyst Essential hypertension Gastroesophageal reflux disease without esophagi tis Resolved Problems Problem Noted Date Diagnosed Date Resolved Date Periprosthetic fracture of p roximal end of femur 05/31/2016 11/11/2017 Hyponatremia 11/09/2015 11/11/2017 Leukocytosis 11/09/2015 11/11/2017 Postoperative anemia due to acute blood loss 6 11/11/2017 Preoperative general physical examination 10/26/2015 02/09/2020 Primary osteoarthritis of left hip 10/26/2015 05/31/2016 Hypokalemia 10/26/2015 11/11/2017 Left hip pain 04/05/2015 11/11/2017 Asthma 06/15/2009 04/15/2018 Immunizations Immunization Administration Dates Next Due (ADACEL/BOOSTRIX)(10 YR UP) TDAP VACCINE, 0.5ML, IM 02/11/2017 (TDVAX)(7 YRS UP) TETANUS AN D DIPHTHERIA TOXOIDS, ADSORBED (2 LF OF TETANUS TOXOID AND 2 LF OF DIPHTHERIA TOXOID), 0.5ML (PF), IM 11/30/2005 INFLUENZA VACCINE HIGH DOSE QUADRIVALENT 65 YR UP PF IM 04/25/2020 INFLUENZA VACCINE QUADRIVALE NT 3 YR UP PF IM 05/15/2017 Influenza Seasonal Unspecifi ed Formulation IM 05/26/2019,06/11/2018,05/20/2013,2009,05/08/2009,09/11/2006 Influenza Vaccine Split 3+ Yrs IM 06/11/2011,01/2008 Influenza Vaccine Split 3+ Yrs PF IM 05/22/2016 Pneumococcal conjugate, unsp ecified formulation 06/03/2014 Zoster Vaccine Live SQ 05/08/2016 Family History Medical History Relation Name Comments Diabetes Brother Luciano Other Brother Luciano MRSA Cancer Father Luciano Colon Cancer Maternal Aunt Arthritis-rheumatoid Mother Alejandrina Cancer Mother Alejandrina bladder Cancer Paternal Grandmother Relation Name Status Comments Brother Luciano (Age 58) Daughter NONE Father Luciano (Age 58) Maternal Aunt Mother Alejandrina (Age 73) Paternal Grandmother Son NONE Social History Tobacco Use Types Packs/Day Years Used Date Smoking Tobacco: Former Cigarettes 0.3 15 1 - 05/31/1989 Smokeless Tobacco: Never Tobacco Cessation:Counseling Given: No Alcohol Use Standard Drinks/Week Comments Yes 0 (1 standard drink = 0.6 oz pur e alcohol) 1 glass wine monthly Comments No Sex and Gender Information Value Date Recorded Sex Assigned at Not on file Legal Sex Female 6:33 AM MATERIALS 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 Gender Identity Not on file Sexual Orientation Not on file Last Filed Vital Signs Vital Sign Reading Time Taken Comments Blood Pressure 120/74 05/12/2020 4:00 PM CDT Pulse 77 05/12/2020 4:00 PM CDT Temperature 37.2 C (98.9 F) 05/12/2020 4:00 PM CDT Respiratory Rate 16 05/12/2020 4:00 PM CDT Oxygen Saturation 95% 05/12/2020 4:00 PM CDT Inhaled Oxygen Concentration - - Weight 110.9 kg (244 lb 6.4 oz) 05/12/2020 4:00 PM CDT Height 170.2 cm (5' 7 ) 05/12/2020 4:00 PM CDT Body Mass Index 38.28 05/12/2020 4:00 PM CDT Plan of Treatment Health Maintenance Due Date Last Done Comments PNEUMOCOCCAL VACCINE 50+ YEA RS (1 of 2 - PCV) 1970 06/03/2014 COLORECTAL SCREENING 1996 FIT-DNA Q 3 years 1996 Flex Sig/CT Colonography Q 5 years 1996 RSV VACCINE (60+ or ) (1 - Risk 60-74 years 1-dose series) 2011 OSTEOPOROSIS SCREENING 2016 ZOSTER VACCINE (2 of 3) 07/03/2016 05/08/2016 BREAST CANCER SCREENING 06/25/2019 06/25/2018 Colorectal Cancer Screening 04/20/2021 FIT/FOBT Q 1 year 04/20/2021 04/20/2020 [place] Preventative Visit/Annual Wellness Visit 08/05/2024 06/04/2022, 07/07/2021, 04/25/2018 INFLUENZA VACCINE (#1) 2025 0, 05/26/2019, 06/11/2018, Additional history exists DTAP/TDAP/TD VACCINES (3 - T d or Tdap) 12/26/2029 12/27/2019, 02/11/2017, 11/30/2005 Medical Devices Implanted Type Area Java Spring Developer Device Identifier Shelf Expiration Date Model / Serial / Lot Shell Trdnt Psl Cornelius Cls 542-11-58g - [id number] Implanted:Qty: 1 on 11/07/2015 by Ramirez Alejandra MD at [facility] Hip Left: Hip [employer] 03/04/2020 [id number] / / [id number] Liner Trdnt X3 Poly 0d 623-00-44g - [id number] Implanted:Qty: 1 on 11/07/2015 by Ramirez Alejandra MD at [facility] Hip Left: Hip [employer] 02/01/2017 623-00-44G / / [id number] Stem Fem Secur-Fit Max #9 [id number] - [id number] Implanted:Qty: 1 on 11/07/2015 by Ramirez Alejandra MD at [facility] Hip Left: Hip [employer] 03/20/2020 [id number] / / [id number] Head Fem C-Taper Cocr Lfit 5 [id number] Implanted:Qty: 1 on 11/07/2015 by Ramirez Alejandra MD at [facility] Hip Left: Hip [employer] 03/04/2016 [id number] / / [id number] Screw Torx 6.5x50mm [id number] - [id number] Implanted:Qty: 1 on 11/07/2015 by Ramirez Alejandra MD at [facility] Screw Left: Hip [employer] 05/28/2020 [id number] / / [id number] Procedures Procedure Name Priority Date/Time Associated Diagnosis Comments OCCULT BLOOD IMMUNOASSAY, COLORECTAL SCREEN Routine 04/20/2020 9:56 AM CDT Colon cancer screening MAMMO SCRN BILAT MOBILE W OR WO CAD Routine 06/25/2018 1:13 PM MATERIALS DEVELOPMENT ENGINEER Screening for breast cancer from Last 3 Months or Most Recently Relevant to Health Maintenance Results * OCCULT BLOOD IMMUNOASSAY, COLORECTAL SCREEN (04/20/2020 9:56 AM CDT) OCCULT BLOOD, STOOL Negative Negative 04/20/2020 10:41 AM CDT [facility] Stool STOOL SPECIMEN / Unknown Collection / Unknown 04/20/2020 9:56 AM CDT 04/20/2020 9:56 AM CDT us Joseph Brenner MD BODY FLUIDS AND STOOLS Final Re sult [facility]# [id number] [address] [place] [address] * MAMMO SCRN BILAT MOBILE W OR WO CAD (06/25/2018 1:13 PM MATERIALS DEVELOPMENT ENGINEER) Anatomical Region Laterality Modality Breast Bilateral Mammography Narrative 07/01/2018 1:26 PM MATERIALS DEVELOPMENT ENGINEER Bilateral Mammogram Reason for Exam: Screening Comparison: Compared to: 10/15/2007 MAMMO PRIOR STUDY , and 09/11/2006 MAMMO PRIOR STUDY Findings: Bilateral CC and MLO views were obtained. This examination was reviewed with the aid of a computer-aided detection system(CAD). Breast Composition: There are scattered areas of fibroglandular density. There are no suspicious masses, areas of architectural distortions, or microcalcifications to suggest malignancy. No significant new findings since the prior mammogram(s). Impression: Negative screening mammogram. Recommendation: Routine annual follow-up Overall Assessment: Birads Category 1: Negative Concepcion Ji [facility] MAMMO ORDERABLES Final Result from Last 3 Months or Most Recently Relevant to Health Maintenance Insurance [employer] [id number] HMO Advance Directives For more information, please contact: [phone] Documents on File Type Date Recorded Patient Elevator Troubleshooter Expl anation Advance Directive POA 11/07/2015 8:36 AM Ad lombardo Directive POA * Full Code (Latest Code Status on File) Date Activated Date Inactivated Comments 11/07/2015 12:42 PM 11/11/2015 4:27 PM * Full Code Date Activated Date Inactivated Comments 11/07/2015 6:09 AM 11/07/2015 12:41 PM Care Teams Fighter Pilot Relationship Specialty Start Date End Date Joseph Brenner MD [address] [place] [address] PCP - General Family Practice 03/09/15
--- OUTSIDE RECORDS SUMMARY | 2025-02-13 16:17 | XMS_ITS | Encounter Summary ---
Author Organization [facility] Address [address] [facility] [place] [address] Care Team Providers Care Channel Director Name Role Phone Joseph Brenner MD Primary Care Provider [phone] Encounter Details Date Type Department Care Team (Late st Contact Info) Description 12/09/2007 Outpatient Historical [facility] Other, [place] NO ADDRESS ON FILE Social History Tobacco Use Types Packs/Day Years Used Date Smoking Tobacco: Never Assessed Comments Unknown Sex and Gender Information Value Date Recorded Sex Assigned at Not on file Legal Sex Female 6:33 AM MOLD SHAKER Gender Identity Not on file Sexual Orientation Not on file documented as of this encounter Plan of Treatment Not on file documented as of this encounter Visit Diagnoses Not on filedocumented in this encounter Care Teams Channel Director Relationship Specialty Start Date End Date Joseph Brenner MD [address] [place] [address] PCP - General Family Practice 03/09/15 documented as of this encounter
--- OUTSIDE RECORDS SUMMARY | 2025-02-13 16:17 | XMS_ITS | Encounter Summary ---
Author Organization [facility] Address [address] [facility] [place] [address] Care Team Providers Care Muffler Installer Name Role Phone Joseph Brenner MD Primary Care Provider [phone] Encounter Details Date Type Department Care Team (Latest Contact Info) Description 09/12/2006 Outpatient Historical [facility] 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
--- OUTSIDE RECORDS SUMMARY | 2025-02-13 16:17 | XMS_ITS | Encounter Summary ---
Author Organization [facility] Address [address] [facility] [place] [address] Care Team Providers Care Record Keeper Name Role Phone Joseph Brenner MD Primary Care Provider [phone] Encounter Details Date Type Department Care Team (Latest Contact Info) Description 01/20/2003 Outpatient Historical [facility] Medicine [address] [phone] Betty Moses MD [address], [address] HYPERTENSION NOS (Primary Dx); ESOPHAGEAL REFLUX; COUGH Social History Tobacco Use Types Packs/Day Years Used Date Smoking Tobacco: Never Assessed Comments Unknown Sex and Gender Information Value Date Recorded Sex Assigned at Not on file Legal Sex Female 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
--- OUTSIDE RECORDS SUMMARY | 2025-02-13 16:17 | XMS_ITS | Encounter Summary ---
Author Organization [facility] Address [address] [place] [address] Care Team Providers Care Public Defender Name Role Phone Joseph Brenner MD Primary Care Provider [phone] Encounter Details Date Type Department Care Team (Latest Contact Info) Description 12/07/[address] 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, Including Shoulder (Primary Dx) Social History Tobacco Use Types Packs/Day Years Used Date Smoking Tobacco: Never Assessed Comments Unknown Sex and Gender Information Value Date Recorded Sex Assigned at Not on file Legal Sex Female 6:33 AM LIQUID LOADER Gender Identity Not on file Sexual Orientation Not on file documented as of this encounter Plan of Treatment Not on file documented as of this encounter Visit Diagnoses Diagnosis Benign neoplasm of skin of upper limb, including shoulder- Primary documented in this encounter Care Teams Public Defender Relationship Specialty Start Date End Date Joseph Brenner MD [address] [place] [address] PCP - General Family Practice 03/09/15 documented as of this encounter
--- OUTSIDE RECORDS SUMMARY | 2025-02-13 16:17 | XMS_ITS | Encounter Summary ---
Author Organization [facility] Address [address] [facility] [address] Care Team Providers Care Distributed Energy Systems Consultant Name Role Phone Joseph Brenner MD Primary Care Provider [phone] Encounter Details Date Type Department Care Team (Late st Contact Info) Description 09/23/2007 Outpatient Historical [facility] [address] [place] [address] Ora Smith MD [address] [place] [address] Social History Tobacco Use Types Packs/Day Years Used Date Smoking Tobacco: Never Assessed Comments Unknown Sex and Gender Information Value Date Recorded Sex Assigned at Not on file Legal Sex Female 6:33 AM CLINICAL DERMATOLOGIST Gender Identity Not on file Sexual Orientation Not on file documented as of this encounter Plan of Treatment Not on file documented as of this encounter Visit Diagnoses Not on filedocumented in this encounter Care Teams Distributed Energy Systems Consultant Relationship Specialty Start Date End Date Joseph Brenner MD [address], [place] [address] PCP - General Family Practice 03/09/15 documented as of this encounter
--- OUTSIDE RECORDS SUMMARY | 2025-02-13 16:17 | XMS_ITS | Encounter Summary ---
Author Organization [facility] Address [address] [facility] [place] [address] Care Team Providers Care Clamp Remover Name Role Phone Joseph Brenner MD Primary Care Provider [phone] Encounter Details Date Type Department Care Team (Latest Contact Info) Description 07/02/2006 Outpatient Historical [facility] Medicine [place] [address] [place] [phone] Ora Smith MD [address] [place], [place] [address] Other Malaise and Fatigue (Primary Dx) Social History Tobacco Use Types Packs/Day Years Used Date Smoking Tobacco: Never Assessed Comments Unknown Sex and Gender Information Value Date Recorded Sex Assigned at Not on file Legal Sex Female 6:33 AM VIDEO PRODUCTION 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
--- OUTSIDE RECORDS SUMMARY | 2025-02-13 16:17 | XMS_ITS | Encounter Summary ---
Author Organization [facility] Address [address] [place] [facility] [place] [address] Care Team Providers Care Training And Development Officer Name Role Phone Joseph Brenner MD Primary Care Provider [phone] Encounter Details Date Type Department Care Team (Latest Contact Info) Description 01/01/[address] 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
--- OUTSIDE RECORDS SUMMARY | 2025-02-13 16:17 | XMS_ITS | Encounter Summary ---
Author Organization [facility] Address [address] [facility] [place] [address] Care Team Providers Care Vice President Commercial Bank Name Role Phone Joseph Brenner MD Primary Care Provider [phone] Encounter Details Date Type Department Care Team (Latest Contact Info) Description 05/06/2007 Outpatient Historical [facility] Family Medicine- [place] [address] [place] [address] Ora Smith MD [address] [place] [address] Unspecified Asthma (Primary Dx); Osteoarth NOS-Other Site Social History Tobacco Use Types Packs/Day Years Used Date Smoking Tobacco: Never Assessed Comments Unknown Sex and Gender Information Value Date Recorded Sex Assigned at Not on file Legal Sex Female 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
--- OUTSIDE RECORDS SUMMARY | 2025-02-13 16:17 | XMS_ITS | Encounter Summary ---
Author Organization [facility] Address [address] [facility] [place] [address] Care Team Providers Care Surface Water Manager Name Role Phone Joseph Brenner MD Primary Care Provider [phone] Encounter Details Date Type Department Care Team (Late st Contact Info) Description 09/11/2006 Outpatient [facility] [address] [facility] [address] [place] [phone] Social History Tobacco Use Types Packs/Day Years Used Date Smoking Tobacco: Never Assessed Comments Unknown Sex and Gender Information Value Date Recorded Sex Assigned at Not on file Legal Sex Female 6:33 AM ELECTRONICS ENGINEER Gender Identity Not on file Sexual Orientation Not on file documented as of this encounter Plan of Treatment Not on file documented as of this encounter Visit Diagnoses Not on filedocumented in this encounter Care Teams Surface Water Manager Relationship Specialty Start Date End Date Joseph Brenner MD [address] [place] [address] PCP - General Family Practice 03/09/15 documented as of this encounter
--- OUTSIDE RECORDS SUMMARY | 2025-02-13 16:17 | XMS_ITS | Encounter Summary ---
Author Organization [employer] [facility] Address [address] [facility] [place] [address] Care Team Providers Care Web Merchandiser Name Role Phone Joseph Brenner MD Primary Care Provider [phone] Encounter Details Date Type Department Care Team (Late st Contact Info) Description 12/05/2007 Outpatient [facility] Breast Center [facility] [address] [place] [address] Ora Smith MD [address] [place] [address] Social History Tobacco Use Types Packs/Day Years Used Date Smoking Tobacco: Never Assessed Comments Unknown Sex and Gender Information Value Date Recorded Sex Assigned at Not on file Legal Sex Female 6:33 AM FLYING SHEAR OPERATOR Gender Identity Not on file Sexual Orientation Not on file documented as of this encounter Plan of Treatment Not on file documented as of this encounter Visit Diagnoses Not on filedocumented in this encounter Care Teams Web Merchandiser Relationship Specialty Start Date End Date Joseph Brenner MD [address] [place] [address] PCP - General Family Practice 03/09/15 documented as of this encounter
--- OUTSIDE RECORDS SUMMARY | 2025-02-13 16:17 | XMS_ITS | Encounter Summary ---
Author Organization [facility] Address [address] [place] [address] Care Team Providers Care Machine Deicer Element Winder Name Role Phone Joseph Brenner MD Primary Care Provider [phone] Encounter Details Date Type Department Care Team (Late st Contact Info) Description 09/24/2007 Outpatient [facility] Breast Center [facility] [address] [place] [address] Vicky Peterson MD [address] [place] [phone] Ora Smith MD [address] [place], [place] [address] Social History Tobacco Use Types Packs/Day Years Used Date Smoking Tobacco: Never Assessed Comments Unknown Sex and Gender Information Value Date Recorded Sex Assigned at Not on file Legal Sex Female 6:33 AM PHYSICAL SECURITY SPECIALIST Gender Identity Not on file Sexual Orientation Not on file documented as of this encounter Plan of Treatment Not on file documented as of this encounter Procedures Procedure Name Priority Date/Time Associated Diagnosis Comments US BREAST UNI RIGHT COMPLETE Routine 10/15/2007 2:31 PM CDT documented in this encounter Results * US BREAST UNILATERAL RIGHT (10/15/2007 2:31 PM CDT) Anatomical Region Laterality Modality Breast Right Other 10/15/2007 2:31 PM CDT Narrative 10/15/2007 2:31 PM CDT Report Available in [facility] Procedure Note 09/06/2008 Report Available in [facility] us Vicky Peterson MD ORDERABLES Final Result documented in this encounter Visit Diagnoses Not on filedocumented in this encounter Care Teams Machine Deicer Element Winder Relationship Specialty Start Date End Date Joseph Brenner MD [address] [place] [address] PCP - General Family Practice 03/09/15 documented as of this encounter
--- OUTSIDE RECORDS SUMMARY | 2025-02-13 16:17 | XMS_ITS | Encounter Summary ---
Author Organization [facility] Address [address] [facility] [place] [address] Care Team Providers Care Camera Prototyping Engineer Name Role Phone Joseph Brenner MD Primary Care Provider [phone] Encounter Details Date Type Department Care Team (Latest Contact Info) Description 06/20/2006 Outpatient Historical [facility] Medicine [place] [address] [place] [phone] Ora Smith MD [address] [place], [place] [address] Other Malaise and Fatigue (Primary Dx) Social History Tobacco Use Types Packs/Day Years Used Date Smoking Tobacco: Never Assessed Comments Unknown Sex and Gender Information Value Date Recorded Sex Assigned at Not on file Legal Sex Female 6:33 AM KEEPER HEAD Gender Identity Not on file Sexual Orientation Not on file documented as of this encounter Plan of Treatment Not on file documented as of this encounter Visit Diagnoses Diagnosis Other malaise and fatigue- Primary documented in this encounter Care Teams Camera Prototyping Engineer Relationship Specialty Start Date End Date Joseph Brenner MD [address] [phone] PCP - General Family Practice 03/09/15 documented as of this encounter
--- OUTSIDE RECORDS SUMMARY | 2025-02-13 16:17 | XMS_ITS | Encounter Summary ---
Author Organization [facility] Address [address] [facility] [place] [address] Care Team Providers Care Hem Marker Name Role Phone Joseph Brenner MD Primary Care Provider [phone] Encounter Details Date Type Department Care Team (Latest Contact Info) Description 04/17/2006 Outpatient Historical [facility] Medicine [place] [address] [place] [phone] Ora Smith MD [facility] [place], [place] [address] Acute Bronchitis (Primary Dx); Unspecified Asthma Social History Tobacco Use Types Packs/Day Years Used Date Smoking Tobacco: Never Assessed Comments Unknown Sex and Gender Information Value Date Recorded Sex Assigned at Not on file Legal Sex Female 6:33 AM EMU FARM 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
--- OUTSIDE RECORDS SUMMARY | 2025-02-13 16:17 | XMS_ITS | Encounter Summary ---
Author Organization [facility] Address [address] [facility] [place] [address] Care Team Providers Care Process Laboratory Specialist Name Role Phone Joseph Brenner MD Primary Care Provider [phone] Encounter Details Date Type Department Care Team (Latest Contact Info) Description 05/24/2016 Ancillary Orders [facility] Pre-Registration [place] CALL TO MAKE APPOINTMENT ONLY [address] [facility] [place] [address] Erna Buchanan, COMMODITY MERCHANT [address] [place] [phone] Visit for screening mammogram (Primary Dx) Social [...] on file Legal Sex Female 6:33 AM FEEDER CATCHER TOBACCO Gender Identity Not on file Sexual Orientation Not on file documented as of this encounter Plan of Treatment Not on file documented as of this encounter Visit Diagnoses Diagnosis Visit for screening mammogram- Primary Other screening mammogram documented in this encounter Care Teams Process Laboratory Specialist Relationship Specialty Start Date End Date Joseph Brenner MD [address] [place] [phone] PCP - General Family Practice 03/09/15 documented as of this encounter
--- OUTSIDE RECORDS SUMMARY | 2025-02-13 16:17 | XMS_ITS | Encounter Summary ---
Author Organization [employer] [facility] Address [address] [facility] [place] [address] Care Team Providers Care Color Depositing Machine Tender Name Role Phone Joseph Brenner MD Primary Care Provider [phone] Reason for Referral * Outpatient Services (Routine) - Closed Specialty Diagnoses / Procedures Referred By Doreen cavanaugh Referred To Contact Oncology Diagnoses Visit for screening mammogram Procedures MAMMO DIGITAL SCREEN BILAT MOBILE Erna Buchanan FNP [address] [place] [phone] Phone: tel: fax: [facility] [place] [address] [address] Phone: tel: Referral ID Status Reason Start Date Expiration Date Visits Re quested Visits Authorized [id number] Closed 03/01/2016 04/01/2017 1 1 Encounter Details Date Type Department Care Team (Latest Contact Info) Description 03/01/2016 Ancillary Orders [facility] [place] [address] [address] Erna Buchanan FNP [address] [place] [phone] Visit for screening mammogram (Primary Dx) Social [...] on file Legal Sex Female 6:33 AM COMMUNITY HEALTH PROGRAM COORDINATOR Gender Identity Not on file Sexual Orientation Not on file documented as of this encounter Plan of Treatment Scheduled Orders Name Type Priority Associated Diagnoses Orde r Schedule MAMMO DIGITAL SCREEN BILAT MOBILE Imaging Routine Visit for screening mammogram 1 Occurrences starting 03/01/2016 until 09/01/2017 documented as of this encounter Visit Diagnoses Diagnosis Visit for screening mammogram- Primary Other screening mammogram documented in this encounter Care Teams Color Depositing Machine Tender Relationship Specialty Start Date End Date Joseph Brenner MD [address] [place] [phone] PCP - General Family Practice 03/09/15 documented as of this encounter
--- OUTSIDE RECORDS SUMMARY | 2025-02-13 16:17 | XMS_ITS | Encounter Summary ---
Author Organization [facility] Address [address] [facility] [place] [address] Care Team Providers Care Inoculator Name Role Phone Joseph Brenner MD Primary Care Provider [phone] Encounter Details Date Type Department Care Team (Late st Contact Info) Description 10/15/2007 Outpatient [facility] [address] [facility] [address] [place] [phone] Social History Tobacco Use Types Packs/Day Years Used Date Smoking Tobacco: Never Assessed Comments Unknown Sex and Gender Information Value Date Recorded Sex Assigned at Not on file Legal Sex Female 6:33 AM PROSTHETIC TECHNICIAN Gender Identity Not on file Sexual Orientation Not on file documented as of this encounter Plan of Treatment Not on file documented as of this encounter Visit Diagnoses Not on filedocumented in this encounter Care Teams Inoculator Relationship Specialty Start Date End Date Joseph Brenner MD [address] [place] [address] PCP - General Family Practice 03/09/15 documented as of this encounter
--- OUTSIDE RECORDS SUMMARY | 2025-02-13 16:17 | XMS_ITS | Encounter Summary ---
Author Organization [facility] Address [address] [facility] [place] [address] Care Team Providers Care Flight Teacher Name Role Phone Joseph Brenner MD Primary Care Provider [phone] Encounter Details Date Type Department Care Team (Latest Contact Info) Description 11/06/2006 Outpatient Historical [facility] Medicine [place] [address], [place] [phone] Dexter Mcelroy MD [address], [place] [phone] Acute Bronchitis (Primary Dx) Social History Tobacco Use Types Packs/Day Years Used Date Smoking Tobacco: Never Assessed Comments Unknown Sex and Gender Information Value Date Recorded Sex Assigned at Not on file Legal Sex Female 6:33 AM GLOBAL COMPENSATION MANAGER Gender Identity Not on file Sexual Orientation Not on file documented as of this encounter Plan of Treatment Not on file documented as of this encounter Visit Diagnoses Diagnosis Acute bronchitis- Primary documented in this encounter Care Teams Flight Teacher Relationship Specialty Start Date End Date Joseph Brenner MD [address] [place] [phone] PCP - General Family Practice 03/09/15 documented as of this encounter
--- OUTSIDE RECORDS SUMMARY | 2025-02-13 16:18 | XMS_ITS | Encounter Summary ---
Author Organization [employer] Address [address] [facility] [place] [address] Care Team Providers Care Cyber Intelligence Analyst Name Role Phone Joseph Brenner MD Primary Care Provider Encounter Details Date Type Department Care Team (Latest Contact Info) Description 01/20/2003 Outpatient Historical [facility] [address] [place] [address] Betty Moses MD [address] [address] SCREENING MAMM-MAILG NEOPL-OTHER (Primary Dx) Social History Tobacco Use Types Packs/Day Years Used Date Smoking Tobacco: Never Assessed Comments Unknown Sex and Gender Information Value Date Recorded Sex Assigned at Not on file Legal Sex Female 6:33 AM POND SAWYER Gender Identity Not on file Sexual Orientation Not on file documented as of this encounter Plan of Treatment Not on file documented as of this encounter Visit Diagnoses Diagnosis Other screening mammogram- Primary documented in this encounter Care Teams Cyber Intelligence Analyst Relationship Specialty Start Date End Date Joseph Brenner MD [address] [place] [phone] PCP - General Family Practice 03/09/15 documented as of this encounter
--- OUTSIDE RECORDS SUMMARY | 2025-02-13 16:18 | XMS_ITS | Encounter Summary ---
Author Organization [facility] Address [address] [facility] [place] [address] Care Team Providers Care Collection Team Lead Name Role Phone Joseph Brenner MD Primary Care Provider [phone] Encounter Details Date Type Department Care Team (Latest Contact Info) Description 10/05/2004 Outpatient Historical [facility] Medicine [place] [address] [place] [phone] Dexter Mcelroy MD [address], [place] [phone] ACUTE FRONTAL SINUSITIS (Primary Dx); ALLERGIC RHINITIS NOS; ACUTE BRONCHITIS; ASTHMA UNSPECIFIED Social History Tobacco Use Types Packs/Day Years Used Date Smoking Tobacco: Never Assessed Comments Unknown Sex and Gender Information Value Date Recorded Sex Assigned at Not on file Legal Sex Female 6:33 AM TRANSCRIPT EVALUATOR Gender Identity Not on file Sexual Orientation Not on file documented as of this encounter Plan of Treatment Not on file documented as of this encounter Visit Diagnoses Diagnosis Acute frontal sinusitis- Primary Allergic rhinitis, cause unspecified Acute bronchitis Unspecified asthma(493.90) Unspecified asthma documented in this encounter Care Teams Collection Team Lead Relationship Specialty Start Date End Date Joseph Brenner MD [address] [place] [phone] PCP - General Family Practice 03/09/15 documented as of this encounter
--- OUTSIDE RECORDS SUMMARY | 2025-02-13 16:18 | XMS_ITS | Encounter Summary ---
Author Organization [facility] Address [address] [facility] [place] [address] Care Team Providers Care Womens Health Nurse Practitioner Name Role Phone Joseph Brenner MD Primary Care Provider [phone] Encounter Details Date Type Department Care Team (Latest Contact Info) Description 04/13/2005 Outpatient Historical [facility] [address] [place] [address] [phone] Noel Moeller, FUEL CONVERSION TECHNICIAN [address] [place] [address] ANEMIA NOS (Primary Dx) Social History Tobacco Use Types Packs/Day Years Used Date Smoking Tobacco: Never Assessed Comments Unknown Sex and Gender Information Value Date Recorded Sex Assigned at Not on file Legal Sex Female 6:33 AM PUBLIC RELATIONS STUDIES DIRECTOR Gender Identity Not on file Sexual Orientation Not on file documented as of this encounter Plan of Treatment Not on file documented as of this encounter Visit Diagnoses Diagnosis Anemia, unspecified- Primary documented in this encounter Care Teams Womens Health Nurse Practitioner Relationship Specialty Start Date End Date Joseph Brenner MD [address] [phone] PCP - General Family Practice 03/09/15 documented as of this encounter
--- OUTSIDE RECORDS SUMMARY | 2025-02-13 16:18 | XMS_ITS | Encounter Summary ---
Author Organization [facility] Address [address] [place] [address] Care Team Providers Care Ballistic Expert Name Role Phone Joseph Brenner MD Primary Care Provider [phone] Encounter Details Date Type Department Care Team (Late st Contact Info) Description 10/11/2004 Outpatient Historical [facility] [address] [place] [address] Social History Tobacco Use Types Packs/Day Years Used Date Smoking Tobacco: Never Assessed Comments Unknown Sex and Gender Information Value Date Recorded Sex Assigned at Not on file Legal Sex Female 6:33 AM 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
--- OUTSIDE RECORDS SUMMARY | 2025-02-13 16:18 | XMS_ITS | Encounter Summary ---
Author Organization [facility] Address [address] [place] [address] Care Team Providers Care Marketing Services Manager Name Role Phone Joseph Brenner MD Primary Care Provider [phone] Encounter Details Date Type Department Care Team (Latest Contact Info) Description 11/30/[address] [facility] [address] [place] [phone] Ora Smith MD [address] [place], [place] [address] Other Bursitis Disorders (Primary Dx); Pain in Joint, Pelvic Region and Thigh; Need for Prophylactic Vaccination with Tetanus-Diphtheria (TD) Social History Tobacco Use Types Packs/Day Years Used Date Smoking Tobacco: Never Assessed Comments Unknown Sex and Gender Information Value Date Recorded Sex Assigned at Not on file Legal Sex Female 6:33 AM REFINING SUPERVISOR Gender Identity Not on file Sexual Orientation Not on file documented as of this encounter Plan of Treatment Not on file documented as of this encounter Visit Diagnoses Diagnosis Other bursitis disorders- Primary Pain in joint, pelvic region and thigh Need for prophylactic vaccination with tetanus-diphtheria (Td) documented in this encounter Care Teams Marketing Services Manager Relationship Specialty Start Date End Date Joseph Brenner MD [address] [place] [phone] PCP - General Family Practice 03/09/15 documented as of this encounter
--- OUTSIDE RECORDS SUMMARY | 2025-02-13 16:18 | XMS_ITS | Encounter Summary ---
Author Organization [facility] Address [address] [place] [address] Care Team Providers Care Track Repair Worker Name Role Phone Joseph Brenner MD Primary Care Provider [phone] Encounter Details Date Type Department Care Team (Latest Contact Info) Description 09/15/2003 Outpatient Historical [facility] Medicine [address] [phone] Betty Moses MD [address], [address] SHOULDER REGION DIS NEC (Primary Dx); SKIN DISORDER NOS Social History Tobacco Use Types Packs/Day Years Used Date Smoking Tobacco: Never Assessed Comments Unknown Sex and Gender Information Value Date Recorded Sex Assigned at Not on file Legal Sex Female 6:33 AM WEB CONTENT DIRECTOR Gender Identity Not on file Sexual Orientation Not on file documented as of this encounter Plan of Treatment Not on file documented as of this encounter Visit Diagnoses Diagnosis Other affections of shoulder region, not elsewhere classified- Primary Unspecified disorder of skin and subcutaneous tissue documented in this encounter Care Teams Track Repair Worker Relationship Specialty Start Date End Date Joseph Brenner MD [address] [phone] PCP - General Family Practice 03/09/15 documented as of this encounter
--- OUTSIDE RECORDS SUMMARY | 2025-02-13 16:18 | XMS_ITS | Encounter Summary ---
Author Organization [facility] Address [address] [facility] [place] [address] Care Team Providers Care Cover Assembler Name Role Phone Joseph Brenner MD Primary Care Provider [phone] Encounter Details Date Type Department Care Team (Latest Contact Info) Description 04/13/2005 Outpatient Historical [facility] [address] [place] [address] Ora Smith MD [address] [place], [place] [address] ADMINISTRTVE ENCOUNT NOS (Primary Dx) Social History Tobacco Use Types Packs/Day Years Used Date Smoking Tobacco: Never Assessed Comments Unknown Sex and Gender Information Value Date Recorded Sex Assigned at Not on file Legal Sex Female 6:33 AM LANGUAGE INTERPRETER Gender Identity Not on file Sexual Orientation Not on file documented as of this encounter Plan of Treatment Not on file documented as of this encounter Visit Diagnoses Diagnosis Encounters for unspecified administrative purpose- Primary documented in this encounter Care Teams Cover Assembler Relationship Specialty Start Date End Date Joseph Brenner MD [address] [place] [address] PCP - General Family Practice 03/09/15 documented as of this encounter
--- OUTSIDE RECORDS SUMMARY | 2025-02-13 16:18 | XMS_ITS | Encounter Summary ---
Author Organization [facility] Address [address] [place] [facility] [place] [address] Care Team Providers Care Can Conveyor Feeder Name Role Phone Joseph Brenner MD Primary Care Provider [phone] Encounter Details Date Type Department Care Team (Latest Contact Info) Description 07/19/2004 Outpatient Historical [facility] Medicine [place] [address], [place] [phone] Dexter Mcelroy MD [address], [place] [phone] ACUTE FRONTAL SINUSITIS (Primary Dx) Social History Tobacco Use Types Packs/Day Years Used Date Smoking Tobacco: Never Assessed Comments Unknown Sex and Gender Information Value Date Recorded Sex Assigned at Not on file Legal Sex Female 6:33 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
--- OUTSIDE RECORDS SUMMARY | 2025-02-13 16:18 | XMS_ITS | Encounter Summary ---
Author Organization [facility] Address [address] [facility] [place] [address] Care Team Providers Care Gas Meter Checker Name Role Phone Joseph Brenner MD Primary Care Provider [phone] Encounter Details Date Type Department Care Team (Latest Contact Info) Description 03/21/2005 Outpatient Historical [facility] Medicine [place] [address] [place] [phone] Ora Smith MD [address] [place], [place] [address] HEADACHE (Primary Dx); ROTATOR CUFF DIS NEC; HYPERTENSION NOS Social History Tobacco Use Types Packs/Day Years Used Date Smoking Tobacco: Never Assessed Comments Unknown Sex and Gender Information Value Date Recorded Sex Assigned at Not on file Legal Sex Female 6:33 AM 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
--- OUTSIDE RECORDS SUMMARY | 2025-02-13 16:18 | XMS_ITS | Encounter Summary ---
Author Organization [facility] Address [address] [facility] [address] Care Team Providers Care Firebrick And Refractory Tile Repairer Name Role Phone Joseph Brenner MD Primary Care Provider [phone] Encounter Details Date Type Department Care Team (Latest Contact Info) Description 09/22/[address] [facility] Medicine [place] [address] [phone] Betty Moses MD [address], [address] ACUTE FRONTAL SINUSITIS (Primary Dx) Social History Tobacco Use Types Packs/Day Years Used Date Smoking Tobacco: Never Assessed Comments Unknown Sex and Gender Information Value Date Recorded Sex Assigned at Not on file Legal Sex Female 6:33 AM MD UROLOGIST Gender Identity Not on file Sexual Orientation Not on file documented as of this encounter Plan of Treatment Not on file documented as of this encounter Visit Diagnoses Diagnosis Acute frontal sinusitis- Primary documented in this encounter Care Teams Firebrick And Refractory Tile Repairer Relationship Specialty Start Date End Date Joseph Brenner MD [address] [phone] PCP - General Family Practice 03/09/15 documented as of this encounter
--- OUTSIDE RECORDS SUMMARY | 2025-02-13 16:18 | XMS_ITS | Encounter Summary ---
Author Organization [facility] Address [address] [place] [facility] [place] [address] Care Team Providers Care Train Brake Operator Name Role Phone Joseph Brenner MD Primary Care Provider [phone] Encounter Details Date Type Department Care Team (Latest Contact Info) Description 10/10/2004 Outpatient Historical [facility] Medicine [place] [address] [place] [phone] Dexter Mcelroy MD [address] [phone] PNEUMONIA, ORGANISM NOS (Primary Dx); ACUTE FRONTAL SINUSITIS Social History Tobacco Use Types Packs/Day Years Used Date Smoking Tobacco: Never Assessed Comments Unknown Sex and Gender Information Value Date Recorded Sex Assigned at Not on file Legal Sex Female 6:33 AM DIGESTER COOK Gender Identity Not on file Sexual Orientation Not on file documented as of this encounter Plan of Treatment Not on file documented as of this encounter Visit Diagnoses Diagnosis Pneumonia, organism unspecified(486)- Primary Pneumonia, organism unspecified Acute frontal sinusitis documented in this encounter Care Teams Train Brake Operator Relationship Specialty Start Date End Date Joseph Brenner MD [address] [place] [phone] PCP - General Family Practice 03/09/15 documented as of this encounter
--- OUTSIDE RECORDS SUMMARY | 2025-02-13 16:18 | XMS_ITS | Encounter Summary ---
Author Organization [facility] Address [address] [place] [address] Care Team Providers Care System Support Technician Name Role Phone Joseph Brenner MD Primary Care Provider [phone] Encounter Details Date Type Department Care Team (Latest Contact Info) Description 12/30/2002 Outpatient Historical [facility] Medicine [place] [address] [phone] Betty Moses MD [address], [address] HYPERTENSION NOS (Primary Dx); UNS ASTHMA WOSTATUS ASTHMATICUS; ALLERGY, UNSPECIFIED Social History Tobacco Use Types Packs/Day Years Used Date Smoking Tobacco: Never Assessed Comments Unknown Sex and Gender Information Value Date Recorded Sex Assigned at Not on file Legal Sex Female 6:33 AM SAMPLE PROCESSOR Gender Identity Not on file Sexual Orientation Not on file documented as of this encounter Plan of Treatment Not on file documented as of this encounter Visit Diagnoses Diagnosis Unspecified essential hypertension- Primary Unspecified asthma(493.90) Unspecified asthma Allergy, unspecified not elsewhere classified documented in this encounter Care Teams System Support Technician Relationship Specialty Start Date End Date Joseph Brenner MD [address] [phone] PCP - General Family Practice 03/09/15 documented as of this encounter
--- OUTSIDE RECORDS SUMMARY | 2025-02-13 16:18 | XMS_ITS | Encounter Summary ---
Author Organization [facility] Address [address] [place] [address] Care Team Providers Care Automotive Technology Instructor Name Role Phone Joseph Brenner MD Primary Care Provider Encounter Details Date Type Department Care Team (Latest Contact Info) Description 04/11/2005 Outpatient Historical [facility] [address] [place] [phone] Noel Moeller, MARIKA [address] [place], [place] [address] INSECT BITE NEC-INFECTED (Primary Dx); NONSPECIF SKIN ERUPT NEC; URTICARIA NOS; GENERALIZED ANXIETY DIS Social History Tobacco Use Types Packs/Day Years Used Date Smoking Tobacco: Never Assessed Comments Unknown Sex and Gender Information Value Date Recorded Sex Assigned at Not on file Legal Sex Female 6:33 AM SUPERVISOR INSECTICIDE Gender Identity Not on file Sexual Orientation Not on file documented as of this encounter Plan of Treatment Not on file documented as of this encounter Visit Diagnoses Diagnosis Other, multiple, and unspecified sites, insect bite, nonvenomous, infected(919.5)- Primary Other, multiple, and unspecified sites, insect bite, nonvenomous, infected Rash and other nonspecific skin eruption Urticaria, unspecified Generalized anxiety disorder documented in this encounter Care Teams Automotive Technology Instructor Relationship Specialty Start Date End Date Joseph Brenner MD [address] [phone] PCP - General Family Practice 03/09/15 documented as of this encounter
--- OUTSIDE RECORDS SUMMARY | 2025-02-13 16:18 | XMS_ITS | Encounter Summary ---
Author Organization [employer] [facility] Address [address] [facility] [place] [address] Care Team Providers Care Photo Checker Name Role Phone Joseph Brenner MD Primary Care Provider [phone] Encounter Details Date Type Department Care Team (Late Contact Info) Description 01/20/2003 Outpatient Historical [facility] Social History Tobacco Use Types Packs/Day Years Used Date Smoking Tobacco: Never Assessed Comments Unknown Sex and Gender Information Value Date Recorded Sex Assigned at Not on file Legal Sex Female 6:33 AM GOLD MINER Gender Identity Not on file Sexual Orientation Not on file documented as of this encounter Plan of Treatment Not on file documented as of this encounter Visit Diagnoses Not on filedocumented in this encounter Care Teams Photo Checker Relationship Specialty Start Date End Date Joseph Brenner MD [address] [place] [address] PCP - General Family Practice 03/09/15 documented as of this encounter
--- OUTSIDE RECORDS SUMMARY | 2025-02-13 16:18 | XMS_ITS | Encounter Summary ---
Author Organization [facility] Address [address] [place] [address] Care Team Providers Care Infantry Assaultman Name Role Phone Amari Castro MD Primary Care Provider [phone] Reason for Visit * Reason Comments Med Refill Encounter Details Date Type Department Care Team (Late st Contact Info) Description 02/13/2025 Refill [facility] Medicine [place] [address] [phone] Amari Castro MD [address] [phone] Essential hypertension Social History Tobacco Use Types Packs/Day Years Used Date Smoking Tobacco: Former Cigarettes 0.3 21 1 - 05/31/1989 Smokeless Tobacco: Never Alcohol Use Standard Drinks/Week Comments Not Currently 0 (1 standard drink = 0.6 oz pur e alcohol) Financial Resource Strain Answer Date R ecorded How hard is it for you to pa y for the very basics like food, housing, medical care, and heating? Not hard at all 07/19/2022 Food Insecurity Answer Date Recorded In the past 12 months, have you worried that your food would run out before you had money to buy more? Never true 07/19/2022 In the past 12 months, did y ou run out of food and didn't have money to buy more? Never true 07/19/2022 Transportation Needs Answer Date Record ed In the past 12 months, has l ack of transportation kept you from medical appointments or from getting medications? Yes 07/19/2022 Lack of Transportation (Non-Medical) Not on file 07/19/2022 Feeling Safe Answer Date Recorded Are you in a relationship wi th someone who hurts you emotionally and/or physically? No 11/06/2023 Comments No Sex and Gender Information Value Date Recorded Sex Assigned at Not on file Legal 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:33 PM CRIMINAL JUSTICE FACULTY Gender Identity Not on file Sexual Orientation Not on file documented as of this encounter Plan of Treatment Upcoming Encounters Date Type Department Care Team (Late st Contact Info) Description 06/22/2025 2:00 PM CRIMINAL JUSTICE FACULTY Office Visit [address] [phone] Amari Castro MD [address] [phone] documented as of this encounter Visit Diagnoses Diagnosis Essential hypertension Unspecified essential hypertension documented in this encounter Additional Health Concerns Assessment Noted Time PHQ-9 Depression Total Score: 3 12/16/19 25 2:13 PM CDT documented as of this encounter Care Teams Infantry Assaultman Relationship Specialty Start Date End Date Amari Castro MD [address] [place] [phone] PCP - General Family Practice 11/20/23 documented as of this encounter
--- OUTSIDE RECORDS SUMMARY | 2025-02-13 16:18 | XMS_ITS | Encounter Summary ---
Author Organization [facility] Address [address] [place] [address] Care Team Providers Care Pcts Name Role Phone Amari Castro MD Primary Care Provider [phone] Reason for Visit * Reason Comments New Prescription Request Patient Communication Patient Communication Encounter Details Date Type Department Care Team (Late st Contact Info) Description 01/27/2025 Telephone [facility] [place] [address] [phone] Amari Castro MD [address] [phone] New Prescription Request; Patient Communication; Patient Communication Social History Tobacco Use Types Packs/Day Years [...] on file Legal 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:33 PM PARAPLANNER Gender Identity Not on file Sexual Orientation Not on file documented as of this encounter Miscellaneous Notes * Telephone Encounter - Marilynn Mitchell - 01/27/2025 3:13 PM CDT Copied from [facility] #[id number]. Topic: CPA Information Request >> Jan 27, 2025 3:11 PM Marilynn Gentile wrote: Caller is returning phone call from clinic. Caller Name: Josselyn Webb Patient/Caregiver Callback Number: Telephone Information: Clinic Left Note In Chart Is there a note from the clinic requesting the caller be transferred when they call back? No Are the credentials of the caregiver who called the patient sheeter machine operator? Yes Call Notes: Communicated information that is documented in the note. Caller does not want a call back from clinic. She got frustrated that I did not transfer the call and asked that the whole thing be forgotten. She no longer wants the medication. * Telephone Encounter - Tana Arenas LPN - 01/27/2025 2:11 PM CDT 01/27/2025 2:11 PM Returned call. No answer. Left voice mail/message to return our call. If patient/caregiver calls back, contact center please inform caller to expect a return call from the clinic. Tana VELEZ * Telephone Encounter - Arlene Baldwin - 01/27/2025 1:46 PM CDT Copied from [facility] #[id number]. Topic: CPA Information Request >> Jan 27, 2025 1:45 PM Arlene Washington wrote: Caller is returning phone call from clinic. Caller Name: Josselyn Webb Patient/Caregiver Callback Number: [phone] (mobile) Clinic Left Note In Chart Is there a note from the clinic requesting the caller be transferred when they call back? No Are the credentials of the caregiver who called the patient sheeter machine operator? Yes Call Notes: Communicated information that is documented in the note. Caller is by the phone now forthe next hour or so and wants a call back from clinic. * Telephone Encounter - Tana Arenas LPN - 01/27/2025 11:51 AM CDT 01/27/2025 11:51 AM Returned call. No answer. Left voice mail/message to return our call. If patient/caregiver calls back, contact center please inform caller to expect a return call from the clinic. Tana VELEZ * Telephone Encounter - Shazia Nolen - 01/27/2025 11:42 AM CDT Copied from [facility] #[id number]. Topic: Medication Request >> Jan 27, 2025 11:39 AM Shazia Elder wrote: Caller Name: Josselyn Webb Callback Number: Telephone Information: Medication (Ask patient/caregiver to spell if possible): prednisone 20 mg Note: All medication prescriptions can be requested using one [facility] Preferred Pharmacy: [facility] - [place], [place] - [address] Call Notes: Caller is requesting a new medication, which is not active on their medication list. Asking for 7 tablets - doing better but still coughing, not as weak and lethargic. Patient is - Not High Risk Are you currently experiencing any symptoms? Yes, and has been seen by provider for the symptom(s) Is there an encounter open? No documented in this encounter Plan of Treatment Upcoming Encounters Date Type Department Care Team (Late st Contact Info) Description 06/22/2025 2:00 PM PARAPLANNER Office Visit [address] [phone] Amari Castro MD [address] [phone] documented as of this encounter Visit Diagnoses Not on filedocumented in this encounter Additional Health Concerns Assessment Noted Time PHQ-9 Depression Total Score: 3 12/16/19 25 2:13 PM CDT documented as of this encounter Care Teams Pcts Relationship Specialty Start Date End Date Amari Castro MD [address] [place] [phone] PCP - General Family Practice 11/20/23 documented as of this encounter
--- OUTSIDE RECORDS SUMMARY | 2025-02-13 16:18 | XMS_ITS | Encounter Summary ---
Author Organization [facility] Address [address] [facility] [place] [address] Care Team Providers Care Case Fitter Name Role Phone Joseph Brenner MD Primary Care Provider [phone] Encounter Details Date Type Department Care Team (Late st Contact Info) Description 04/13/2005 Outpatient Historical [facility] [address] [place] [address] Lowell Yousif MD NO ADDRESS ON FILE Social History Tobacco Use Types Packs/Day Years Used Date Smoking Tobacco: Never Assessed Comments Unknown Sex and Gender Information Value Date Recorded Sex Assigned at Not on file Legal Sex Female 6:33 AM PRODUCT RESPONSIBILITY LIAISON Gender Identity Not on file Sexual Orientation Not on file documented as of this encounter Plan of Treatment Not on file documented as of this encounter Procedures Procedure Name Priority Date/Time Associated Diagnosis Comments HEMOGLOBIN AND HEMATOCRIT Routine 04/13/2005 6:03 PM CDT LIPID PANEL Routine 04/13/2005 6:03 PM CDT documented in this encounter Results * HEMOGLOBIN AND HEMATOCRIT (04/13/2005 6:03 PM CDT) HEMOGLOBIN 12.0 12.0 - 16.0 g/dL INTERFACE SYSTEM HEMATOCRIT 38.8 36.0 - 46.0 % INTERFACE SYSTEM 04/13/2005 6:03 PM CDT Lowell Yousif MD HEMATOLOGY ORDERABLES Final Re sult INTERFACE SYSTEM Refer to clinic/hospital department * (ABNORMAL) LIPID PANEL (04/13/2005 6:03 PM CDT) CALCULATED TOTAL CHOLESTEROL TO HDL RATIO 5.94(H) 3.27 - 4.44 INTERFACE SYSTEM CHOLESTEROL 196 75 - 200 mg/dL INTERFACE SYSTEM GLUCOSE 96 70 - 110 mg/dL INTERFACE SYSTEM HDL 33(L) 40 - 60 mg/dL INTERFACE SYSTEM LDL CALCULATED 127 0 - 130 mg/dL INTERFACE SYSTEM TRIGLYCERIDE 182 0 - 200 mg/dL INTERFACE SYSTEM 04/13/2005 6:03 PM CDT Lowell Yousif MD CHEMISTRY ORDERABLES Final Res ult Performing Organization Address [facility] Co de Phone Number INTERFACE SYSTEM Refer to clinic/hospital department documented in this encounter Visit Diagnoses Not on filedocumented in this encounter Care Teams Case Fitter Relationship Specialty Start Date End Date Joseph Brenner MD [address] [place] [address] PCP - General Family Practice 03/09/15 documented as of this encounter
--- OUTSIDE RECORDS SUMMARY | 2025-02-13 16:18 | XMS_ITS | Encounter Summary ---
Author Organization [facility] Address [address] [place] [address] Care Team Providers Care Credit Specialist Name Role Phone Joseph Brenner MD Primary Care Provider [phone] Encounter Details Date Type Department Care Team (Latest Contact Info) Description 10/15/2005 Outpatient Historical [facility] [address] [place] [phone] Noel Moeller, BROILER MANAGER [address] [place] [address] Acute Frontal Sinusitis (Primary Dx); Allergic Rhinitis, Cause Unspecified; Unspecified Asthma; Unspecified Disorder of Skin and Subcutaneous Tissue Social History Tobacco Use Types Packs/Day Years Used Date Smoking Tobacco: Never Assessed Comments Unknown Sex and Gender Information Value Date Recorded Sex Assigned at Not on file Legal Sex Female 6:33 AM HARD ROCK DRILL OPERATOR Gender Identity Not on file Sexual Orientation Not on file documented as of this encounter Plan of Treatment Not on file documented as of this encounter Visit Diagnoses Diagnosis Acute frontal sinusitis- Primary Allergic rhinitis, cause unspecified Unspecified asthma(493.90) Unspecified asthma Unspecified disorder of skin and subcutaneous tissue documented in this encounter Care Teams Credit Specialist Relationship Specialty Start Date End Date Joseph Brenner MD [address] [phone] PCP - General Family Practice 03/09/15 documented as of this encounter
--- OUTSIDE RECORDS SUMMARY | 2025-02-13 16:18 | XMS_ITS | Encounter Summary ---
Author Organization [facility] Address [address] [facility] [place] [address] Care Team Providers Care Envelope Addresser Name Role Phone Joseph Brenner MD Primary Care Provider [phone] Encounter Details Date Type Department Care Team (Latest Contact Info) Description 02/02/2005 Outpatient Historical [facility] [place] [address] [place] [phone] Vicky Peterson MD [address] [place] [phone] INSOMNIA NEC (Primary Dx); HYPERTENSION NOS; ABNORMAL WEIGHT GAIN Social History Tobacco Use Types Packs/Day Years Used Date Smoking Tobacco: Never Assessed Comments Unknown Sex and Gender Information Value Date Recorded Sex Assigned at Not on file 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
--- OUTSIDE RECORDS SUMMARY | 2025-02-13 16:18 | XMS_ITS | Encounter Summary ---
Author Organization [facility] Address [address] [facility] [place] [address] Care Team Providers Care Account Resolution Expert Name Role Phone Joseph Brenner MD Primary Care Provider [phone] Encounter Details Date Type Department Care Team (Latest Contact Info) Description 05/24/2005 Outpatient Historical [facility] 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
--- OUTSIDE RECORDS SUMMARY | 2025-02-13 16:18 | XMS_ITS | Clinical Summary ---
Author Organization [facility] [address] [facility] Address [address] [facility] [address] [place] [address] Care Team Providers Care Care Mgr Name Role Phone Amari Castro MD Primary Care Provider [phone] Allergies Active Allergy Reactions Criticality Noted Date Comments Benzonatate Anxiety Low 05/09/2021 Lisinopril Hives,Rash High 06/10/2008 Montelukast Other (See Comments) 11/24/2015 depression Naproxen Nausea and Vomiting,Headache Low 11/12/2012 From 09/2012 to 11/2012 every time she takes the Naproxen 500 mg she gets a Headache in the evening. Prednisone Anxiety Low 09/22/2015 Shellfish Containing Products Swelling Medium 10/26/2015 Sneezing and runny nose Sulfa (Sulfonamide Antibiotics) Nausea and Vomiting Low 03/10/2009 Medications cetirizine (ZyrTEC) 10 mg tabletIndication s:Environmental allergies TAKE ONE TABLET AT BEDTIME 30 Tablet 3 0 Active alcohol (BD Single Use Swabs Regular) Pads, Medicated USE TO CLEAN FINGER BEFORE OBTAINING SAMPLE DIRECTED 200 Each 3 2 Active lancets (TRUEplus Lancets) 33 gauge Use as needed to obtain blood sample for testing 200 Each 3 2 Active amLODIPine (NORVASC) 5 mg tablet TAKE 1 TABLET (5 MG) BY MOUTH DAILY. 100 Tablet 3 3 Active polyethylene glycol 3350 (Miralax) 17 gram/dose Powder Take 1 Scoop (17 Grams) by mouth daily. Dissolve in 8 ounces of fluid and drink entire liquid 527 Gram 4 Active tranexamic acid (LYSTEDA) 650 mg Tablet tablet Take 3 Tablets (1,950 mg) by mouth daily after supper. 9 Tablet 4 Active Additional Information Patient not taking.Reported on 12/15/2024 hydroCHLOROthiaz felicitas 25 mg tabletIndication s:Essential hypertension take one tablet by mouth every day 100 Tablet 3 4 Active Blood-Glucose Meter (True Metrix Glucose Meter) USE DIRECTED TO CHECK BLOOD SUGAR NEEDED 1 Each 4 Active blood sugar diagnostic (True Metrix Glucose Test Strip) Strip Use to check blood sugar as needed. 200 Each 3 4 Active blood glucose control, low (True Metrix Level 1) Solution Use to calibrate meter. 5 mL 3 4 Active fluticasone propion-salmeter oL (Advair Diskus) 250-50 mcg/dose disk inhalerIndicatio ns:Mild intermittent asthma without complication 1 PUFF(S) TWICE A DAY 3 Each 3 4 Active nystatin (NYSTOP) 100,000 unit/gram powderIndication s:Skin yeast infection Apply to affected area 2 times daily. 1 Gram 1 4 Active albuterol (PROVENTIL,ROSALIND CRISTINO) 2.5 mg /3 mL (0.083 %) Solution for NebulizationIndi cations:Mild intermittent asthma without complication USE ONE VIAL IN NEBULIZER EVERY 4 HOURS NEEDED FOR SHORTNESS OF BREATH OR WHEEZING 180 mL 3 4 Active fluticasone propionate (FLONASE) 50 mcg/spray [place], Suspension nasal inhalerIndicatio ns:Environmental allergies 2 SPRAY EACH NOSTRIL EVERY DAY 48 Gram 3 4 Active albuterol sulfate HFA 90 mcg/actuation aerosol inhalerIndicatio ns:Mild intermittent asthma without complication INHALE 2 PUFFS EVERY 6 HOURS NEEDED FOR SHORTNESS OF BREATH 25.5 Gram 3 4 Active celecoxib (CeleBREX) 100 mg capsuleIndicatio ns:Arthritis of right hip Take 1 Capsule (100 mg) by mouth daily. 30 Capsule 3 4 Active Additional Information Patient not taking.Reported on 12/15/2024 rosuvastatin (CRESTOR) 10 mg tabletIndication s:Dyslipidemia TAKE ONE TABLET BY MOUTH 3 DAYS PER WEEK ON SATURDAY, SATURDAY, SATURDAY FOR HIGH CHOLESTEROL. 40 Tablet 3 4 Active FLUoxetine (PROzac) 20 mg capsuleIndicatio ns:Severe obesity (BMI 35.0-39.9) with comorbidity (CMS/HCC) TAKE 2 CAPSULES IN THE MORNING AND TAKE 1 CAPSULE IN THE EVENING 270 Capsule 3 4 Active cholecalciferol 1,250 mcg (50,000 unit) CapsuleIndicatio ns:Vitamin D deficiency Take 1 Capsule (50,000 Units) by mouth every 2 weeks. 8 Capsule 1 5 05/24/20 25 Active fluconazole (DIFLUCAN) 150 mg tablet Take 1 Tablet (150 mg) by mouth daily. 1 Tablet 1 5 Active cyanocobalamin 1,000 mcg Tablet Take 1,000 mcg by mouth daily. Active clonazePAM (KlonoPIN) 0.5 mg TabletIndication s:Generalized anxiety disorder Take 1-2 Tablets (0.5-1 mg) by mouth 2 times daily as needed for Anxiety. 60 Tablet 5 5 Active traMADol (ULTRAM) 50 mg tabletIndication s:Status post total right knee replacement Take 1 Tablet (50 mg) by mouth every 6 hours as needed for Pain. 60 Tablet 5 Active naloxone (NARCAN) 4 mg/spray [place], Non-Aerosol EMERGENCY USE ONLY: Administer 1 spray (4 mg) in one nostril one time. May repeat in alternating nostrils every 2-3 min until responsive or EMS arrives. 2 Each 3 5 Active losartan (COZAAR) 50 mg tabletIndication s:Essential hypertension TAKE ONE TABLET BY MOUTH EVERY DAY 100 Tablet 3 5 Active potassium CHLORIDE (K-DUR,KLOR-CON M20) 20 mEq Extended Release tabletIndication s:Hypokalemia TAKE ONE TABLET BY MOUTH DAILY WITH BREAKFAST 90 Tablet 1 5 Active Active Problems Problem Noted Date Diagnosed Date History of tobacco use 10/16/2023 Prediabetes 10/16/2023 Elevated alkaline phosphatase level 09/26/2021 Status post total right knee replacement 021 Primary osteoarthritis of left knee 03/23/2021 Allergic rhinitis 02/01/2020 Dependent on walker for ambulation 10/02/2019 Gait instability 10/02/2019 Vitamin D deficiency 11/05/2018 Mild intermittent asthma without complication Dyslipidemia 11/11/2017 Chronic bilateral low back pain without sciatica 11/11/2017 Arthritis of right hip 05/31/2016 Preoperative general physical examination 2015 Hypokalemia 10/26/2015 Severe obesity (BMI 35.0-39.9) with comorbidity 10/26/2015 QUINTON on CPAP 10/26/2015 basal cell 08/05/2014 Overview (09/25/2021): not melanoma Generalized anxiety disorder 09/19/2010 S/P hysterectomy 09/19/2010 Overview (12/01/2020): Had complete hyst Recurrent major depressive disorder, in partial remission 09/19/2010 Essential hypertension Gastroesophageal reflux disease without esophagi tis Depression Constipation Anxiety Resolved Problems Problem Noted Date Diagnosed Date Resolved Date Primary osteoarthritis of right knee 02/01/2020 04/13/2021 Cat scratch 02/01/2020 06/04/2022 Hyperglycemia 11/11/2017 07/07/2021 Periprosthetic fracture of p roximal end of femur 05/31/2016 11/11/2017 Hyponatremia 11/09/2015 11/11/2017 Postoperative anemia due to acute blood loss 6 11/11/2017 Leukocytosis 11/09/2015 11/11/2017 Primary osteoarthritis of left hip 10/26/2015 05/31/2016 Left hip pain 04/05/2015 11/11/2017 RUQ abdominal pain 09/19/2010 2 Asthma 06/15/2009 04/15/2018 Obstructive sleep apnea (adult) (pediatric) 06/04/2022 Overview (09/25/2021): Sleeps with CPAP sometimes Hyperlipidemia 06/04/2022 Asthma 06/04/2022 Preop general physical exam 06/04/2022 Primary localized osteoarthritis of left knee 06/04/2022 Encounters Date Type Department Care Team Description 02/13/[address] [phone] Amari Castro MD Essential hypertension 01/27/[address] [phone] Amari Castro MD New Prescription Request; Patient Communication; Patient Communication 01/19/2025 External Device Data STL ABSTRACTION Provider, Abstract 01/13/[address] [phone] Amari Castro MD Advice Only; Patient Communication 01/08/[address] [phone] Amari Castro MD Essential hypertension; Hypokalemia 12/24/2024 External Device Data STL ABSTRACTION Provider, Abstract 12/24/2024 Orders Only [address] [phone] Amari Castro MD Moderate persistent asthma with exacerbation 12/24/[address] [phone] Amari Castro MD Medication Question 12/20/2024 Results Follow-Up [address] [phone] Amari Castro MD MEDICATION COMPLIANCE DRUG SCREEN, MICROALBUMIN/CREATINI NE RATIO, RANDOM UR, TSH REFLEXIVE, Additional followed-up results: 3 12/15/2024 2:20 PM CDT Office Visit [address] [phone] Amari Castro MD Chronic bilateral low back pain without sciatica (Primary Dx); Status post total right knee replacement; Generalized anxiety disorder; Essential hypertension; Dyslipidemia; Recurrent major depressive disorder, in partial remission; Mild intermittent asthma without complication; Severe obesity (BMI 35.0-39.9) with comorbidity (CMS/HCC) 11/24/[address] [phone] Amari Castro MD Generalized anxiety disorder from Last 3 Months Immunizations Immunization Administration Dates Next Due (ADACEL/BOOSTRIX)(10 YR UP) TDAP VACCINE, 0.5ML, IM 02/11/2017 (PREVNAR 13)(6 WKS UP) PNEUM OCOCCAL CONJUGATE (PCV13) 0.5 ML, IM 04/27/2021 (SPIKEVAX) (12 YRS UP PRIMAR Y SERIES) COVID-19 VACCINE - MRNA-1273(PF) 100 MCG/0.5 ML IM SUSP 11/25/2020,10/28/2020 (TDVAX)(7 YRS UP) TETANUS AN D DIPHTHERIA TOXOIDS, ADSORBED (2 LF OF TETANUS TOXOID AND 2 LF OF DIPHTHERIA TOXOID), 0.5ML (PF), IM 11/30/2005 INFLUENZA VACCINE HIGH DOSE QUADRIVALENT 65 YR UP PF IM 06/20/2021,04/25/2020 INFLUENZA VACCINE QUADRIVALE NT 3 YR UP PF IM 05/15/2017 Influenza Seasonal Unspecifi ed Formulation IM 05/26/2019,06/11/2018,05/20/2013,2009,05/08/2009,09/11/2006 Influenza Vaccine Split 3+ Yrs IM 06/11/2011,01/2008 Influenza Vaccine Split 3+ Yrs PF IM 05/22/2016 Pneumococcal conjugate, unsp ecified formulation 06/03/2014 Zoster Vaccine Live SQ 05/08/2016 Family History Medical History Relation Name Comments Diabetes Brother Luciano Other Brother Luciano MRSA Lymphoma Father Luciano Colon Cancer Maternal Aunt Arthritis-rheumatoid Mother Alejandrina Cancer Mother Alejandrina bladder Cancer Paternal Grandmother Breast Cancer Neg Hx Cancer - Other Neg Hx Melanoma Neg Hx Ovarian Cancer Neg Hx Pancreatic Cancer Neg Hx Uterine or Endometrial Cance r, Not Including Cervical Neg Hx Relation Name Status Comments Brother Luciano (Age 58) Father Luciano (Age 58) Maternal Aunt Mother Alejandrina (Age 73) Paternal Grandmother Social History Tobacco Use Types Packs/Day Years Used Date Smoking Tobacco: Former Cigarettes 0.3 21 1 - 05/31/1989 Smokeless Tobacco: Never Tobacco Cessation:Counseling Given: Not Answered Alcohol Use Standard Drinks/Week Comments Not Currently [...] on file Legal 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:33 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 Gender Identity Not on file Sexual Orientation Not on file Last Filed Vital Signs Vital Sign Reading Time Taken Comments Blood Pressure 130/70 12/15/2024 2:13 PM CDT Pulse 75 12/15/2024 2:13 PM CDT Temperature 36.6 C (97.8 F) 12/15/2024 2:13 PM CDT Respiratory Rate 16 12/15/2024 2:13 PM CDT Oxygen Saturation 95% 12/15/2024 2:13 PM CDT Inhaled Oxygen Concentration - - Weight 110.7 kg (244 lb 1.6 oz) 12/15/2024 2:13 PM CDT Height 168.9 cm (5' 6.5 ) 12/15/2024 2:13 PM CDT Body Mass Index 38.81 12/15/2024 2:13 PM CDT Plan of Treatment Upcoming Encounters Date Type Department Care Team (Late st Contact Info) Description 06/22/2025 2:00 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 Office Visit [address] [phone] Amari Castro MD [address] [phone] Health Maintenance Due Date Last Done Comments FIT/ DNA Q 3 YEARS (AUTO ORDER) 1969 COLORECTAL CANCER SCREENING (AUTO ORDER) 1996 COLORECTAL SCREENING 1996 FIT-DNA Q 3 years 1996 Flex Sig/CT Colonography Q 5 years 1996 RSV VACCINE (60+ or ) (1 - Risk 60-74 years 1-dose series) 2011 OSTEOPOROSIS SCREENING 2016 ZOSTER VACCINE (2 of 3) 07/03/2016 05/08/2016 FIT/FOBT Q 1 YEAR (AUTO ORDER) 04/20/2021 04/20/2020, 04/20/2020 FIT/FOBT Q 1 year 04/20/2021 04/20/2020 PNEUMOCOCCAL VACCINE 50+ YEARS (2 of 2 - PPSV23) 06/22/2021 04/27/2021, 06/03/2014 COVID-19 Vaccine (3 - season) 2024 11/25/2020, 10/28/2020 [place] ([place] Preventative Visit/Annual Wellness Visit 08/05/2024 07/22/2023, 07/19/2022, 06/04/2022, Additional history exists BREAST CANCER SCREENING 01/01/2025 01/02/20 24, 06/25/2018, 06/25/2018 INFLUENZA VACCINE (#1) 2025 4, 09/18/2023, 07/22/2023, Additional history exists Colorectal Cancer Screening (AUTO ORDER) 04/20/2025 FLEX SIG/CT COLONOGRAPHY Q 5 YEARS (AUTO ORDER) 04/20/2025 04/20/2020, 04/20/2020 Colorectal Cancer Screening 12/15/2025 Postponed from 1996 (Patient Refused) DTAP/TDAP/TD VACCINES (2 - Td or Tdap) 02/11/2027 02/11/2017, 11/30/2005 Medical Devices Implanted Type Area Airport Baggage Screener Device Identifier Shelf Expiration Date Model / Serial / Lot Cement Palacos Mv Zirconium Dioxide St Lf Disp [id number] - [id number] Implanted:Qty: 1 on 04/12/2021 by Arnoldo Jacobo MD at [facility] Cement Right: Knee [employer] [id number] 09/04/2022 [id number] / / [id number] Cement Palacos Mv Zirconium Dioxide St Lf Disp [id number] - [id number] Implanted:Qty: 1 on 04/12/2021 by Arnoldo Jacobo MD at [facility] Cement Right: Knee [employer] [id number] 09/04/2022 [id number] / / [id number] Liner Trdnt X3 Poly 0d 623-00-44g - [id number] Implanted:Qty: 1 on 11/07/2015 by Ramirez Alejandra MD Hip Left: Hip [employer] 02/01/2017 623-00-44G / / [id number] Shell Trdnt Psl Cornelius Clstr 542-11-58g - [id number] Implanted:Qty: 1 on 11/07/2015 by Ramirez Alejandra MD Hip Left: Hip [employer] 03/04/2020 542-11-58G / / [id number] Stem Fem Secur-Fit Max #9 6052-0935s - [id number] Implanted:Qty: 1 on 11/07/2015 by Ramirez Alejandra MD Hip Left: Hip [employer] 03/20/2020 [id number] / / [id number] Head Fem C-Taper Cocr Lfit 4475 - [id number] Implanted:Qty: 1 on 11/07/2015 by Ramirez Alejandra MD Hip Left: Hip [employer] 03/04/2016 / / [id number] Insert Attune Fb Cr Sz6 7mm 1516-20-607 - [id number] Implanted:Qty: 1 on 04/12/2021 by Arnoldo Jacobo MD at [facility] Knee Right: Knee [employer] [id number] 10/02/2025 [id number] / / [id number] Comp Tib Attune Fb Cmnt Sz6 1506-70-006 - [id number] Implanted:Qty: 1 on 04/12/2021 by Arnoldo Jacobo MD at [facility] Knee Right: Knee [employer] [id number] 03/04/2031 [id number] / / [id number] Comp Fem Attune Cr Sz 6n Rt Cmntd 1504-00-226 - [id number] Implanted:Qty: 1 on 04/12/2021 by Arnoldo Jacobo MD at [facility] Knee Right: Knee [employer] [id number] 02/01/2031 [id number] / / [id number] Comp Fem Attune Poro Cr Sz 5 Lt Cmntlss 1504-01-105 - [id number] Implanted:Qty: 1 on 11/06/2023 by Arnoldo Jacobo MD at [facility] Knee Left: Knee [employer] [id number] 05/04/2032 [id number] / / [id number] Screw Torx 6.5x50mm 5873-9607-1 - [id number] Implanted:Qty: 1 on 11/07/2015 by Ramirez Alejandra MD Screw Left: Hip [employer] 05/28/202020297414-2826-1 / / [id number] Bsplt Tib Attune Fix Brng Sz 6 Implanted:Qty: 1 on 11/06/2023 by Arnoldo Jacobo MD at [facility] Left: Knee [id number] 10/02/2033 [id number] / / [id number] Tibial Insert Implanted:Qty: 1 on 11/06/2023 by Arnoldo Jacobo MD at [facility] Left: Knee 08/04/2030 [id number] / / [id number] Procedures Procedure Name Priority Date/Time Associated Diagnosis Comments CBC WITH DIFFERENTIAL Routine 12/15/2024 3:22 PM CDT Essential hypertension COMPREHENSIVE METABOLIC PANEL Routine 12/15/2024 3:22 PM CDT Essential hypertension LIPID PANEL Routine 12/15/2024 3:22 PM CDT Dyslipidemia TSH REFLEXIVE Routine 12/15/2024 3:22 PM CDT Dyslipidemia MICROALBUMIN/CREATINI NE RATIO, RANDOM UR Routine 12/15/2024 3:22 PM CDT Essential hypertension MEDICATION COMPLIANCE DRUG SCREEN Routine 12/15/2024 3:22 PM CDT Chronic bilateral low back pain without sciatica MAMMO 3D MOOKIE SCREEN BILAT W OR WO CAD Routine 01/02/2024 2:44 PM CDT Screening mammogram for breast cancer OCCULT BLOOD IMMUNOASSAY, COLORECTAL SCREEN Routine 04/20/2020 9:56 AM CDT from Last 3 Months or Most Recently Relevant to Health Maintenance Results * (ABNORMAL) MEDICATION COMPLIANCE DRUG SCREEN (12/15/2024 3:22 PM CDT) Summary [facility] Comment: Prescribed Prescribed Not Prescribed Consistent Inconsistent Inconsistent Tramadol Prescribed Drug 1 Tramadol [facility] BUPRENORPHINE (URINE) NEGATIVE <5 ng/mL [employer] [facility] Fentanyl NEGATIVE <0.5 ng/mL [facility] Propoxyphene, Urine NEGATIVE <300 ng/mL [facility] MDA (Ecstasy Mtb), Urine NEGATIVE <200 ng/mL [facility] MDMA (Ecstasy), Urine NEGATIVE <200 ng/mL [facility] MDMA Comments [facility] Comment:See LDT Notes Meprobamate, Urine NEGATIVE <1000 ng/mL [facility] Carisoprodol Comments [facility] Comment:See LDT Notes Tapentadol, Urine NEGATIVE <50 ng/mL [facility] Nortapentadol, Urine NEGATIVE <50 ng/mL [facility] Tapentadol Comments [facility] Comment:See LDT Notes O-Desmethyltramadol, Urine 119(H) <100 ng/mL [facility] medMATCH Desmethyltram, Urine CONSISTENT [facility] Tramadol, Urine 384(H) <100 ng/mL [facility] medMATCH Tramadol, Urine CONSISTENT [facility] Tramadol Comments [facility] Comment:See Tramadol Notes, LDT Notes Gabapentin, Urine NEGATIVE <1000 ng/mL [facility] Gabapentin Comments [facility] Comment:See LDT Notes Meperidine, Urine NEGATIVE <100 ng/mL [facility] Normeperidine, Urine NEGATIVE <100 ng/mL [facility] Meperidine Comments [facility] Comment:See LDT Notes PREGABALIN, QUANT URINE NEGATIVE <1000 ng/mL [facility] Pregabalin Comments [facility] Comment:See LDT Notes Alcohol Metabolites, Urine NEGATIVE <500 ng/mL [facility] AMPHETAMINES (URINE) NEGATIVE <500 ng/mL [facility] BARBITURATES (URINE) NEGATIVE <300 ng/mL [facility] BENZODIAZEPINES (URINE) NEGATIVE <100 ng/mL [facility] COCAINE & METABOLITE (URINE) NEGATIVE <150 ng/mL [facility] 6 ACETYLMORPHINE, URINE NEGATIVE <10 ng/mL [facility] CANNABINOIDS QUAL, URINE NEGATIVE <20 ng/mL [facility] Methadone Metabolite, Urine NEGATIVE <100 ng/mL [facility] OPIATE CLASS (URINE) NEGATIVE <100 ng/mL [facility] OXYCODONE CLASS (URINE) NEGATIVE <100 ng/mL [facility] PHENCYCLIDINE, URINE NEGATIVE <25 ng/mL [facility] Creatinine, Urine 27.4 > or = 20.0 mg/dL [facility] PH 8.5 4.5 - 9.0 [facility] OXIDANT, URINE NEGATIVE <200 mcg/mL [facility] ZOLPIDEM, URINE NEGATIVE <5 ng/mL [facility] [place] Zolipidem Metabolite, Urine NEGATIVE <5 ng/mL [email or web address] Zolpidem Comments [facility] Comment:See LDT Notes COMMENT TOXICOLOGY [facility] Comment: This drug testing is for medical treatment only. Analysis was performed as non-forensic testing and these results should be used only by healthcare providers to render diagnosis or treatment, or to monitor progress of medical conditions. Tramadol Notes: Tramadol, Desmethyltramadol detected is consistent with the use of the drug Tramadol. LDT Notes: Confirmation tests were developed and their analytical performance characteristics have been determined by [email or web address]. It has not been cleared or approved by the FDA. This assay has been validated pursuant to the CLIA regulations and is used for clinical purposes. medMATCH(R) enables providers to identify if drug use is consistent or inconsistent with a corresponding prescribed medication(s) list. Healthcare Providers needing Interpretation assistance, please contact us at [phone] ( ) M-F, 8am to 10pm EST Test Performed at: [email or web address] [id number] [place] [address] Tano QUESADA Urine URINE SPECIMEN OBTAINED BY CLEAN CATCH PROCEDURE / Unknown 12/15/2024 3:22 PM CDT 12/16/2024 4:51 AM CDT us Amari Castro MD URINE ORDERABLES Final Result [facility] [email or web address] [address] * TSH REFLEXIVE (12/15/2024 3:22 PM CDT) TSH 1.12 0.40 - 4.50 mIU/L [email or web address] Comment: Test Performed at: [email or web address] [id number] [place] [address] Royal Gaitan MD Blood 12/15/2024 3:22 PM CDT 12/15/2024 3:22 PM CDT Amari Castro MD CHEMISTRY ORDERABLES Final Resul t Performing Organization Address City/[facility]/ZIP Co de Phone Number [facility] [phone] [email or web address] [address] [address] [address] * MICROALBUMIN/CREATININE RATIO, RANDOM UR (12/15/2024 3:22 PM CDT) CREATININE, URINE 30 20 - 275 mg/dL [facility] ALBUMIN, URINE <0.2 See Note: mg/dL [facility] Comment: Reference Range: Reference Range Not established ALB/CREAT RATIO, URINE NOTE <30 mg/g creat [facility] Comment: NOTE: The urine albumin value is less than 0.2 mg/dL therefore we are unable to calculate excretion and/or creatinine ratio. The ADA defines abnormalities in albumin excretion as follows: Albuminuria Category Result (mg/g creatinine) Normal to Mildly increased <30 Moderately increased 30-299 Severely increased > OR = 300 The ADA recommends that at least two of three specimens collected within a 3-6 month period be abnormal before considering a patient to be within a diagnostic category. Test Performed at: [facility] [id number] [facility] [place] [address] Royal Gaitan MD Urine URINE SPECIMEN OBTAINED BY CLEAN CATCH PROCEDURE / Unknown 12/15/2024 3:22 PM CDT 12/16/2024 4:51 AM CDT Amari Castro MD URINE ORDERABLES Final Result [facility] [phone] [facility] [address] [place] [address] * (ABNORMAL) CBC WITH DIFFERENTIAL (12/15/2024 3:22 PM CDT) WBC 7.2 3.8 - 10.8 Thousand/u L [facility] RBC 5.05 3.80 - 5.10 Million/uL [facility] HEMOGLOBIN 14.7 11.7 - 15.5 g/dL [facility] HEMATOCRIT 45.9(H) 35.0 - 45.0 % [facility] MCV 90.9 80.0 - 100.0 fL [facility] MCH 29.1 27.0 - 33.0 pg [facility] MCHC 32.0 32.0 - 36.0 g/dL [facility] Comment: For adults, a slight decrease in the calculated MCHC value (in the range of 30 to 32 g/dL) is most likely not clinically significant; however, it should be interpreted with caution in correlation with other red cell parameters and the patient's clinical condition. RDW 12.9 11.0 - 15.0 % [facility] PLATELETS 227 140 - 400 Thousand/u L [facility] MPV 10.1 7.5 - 12.5 fL [facility] NEUTROPHIL ABSOLUTE 4,543 1,500 - 7,800 cells/uL [facility] LYMPHOCYTE ABSOLUTE 1,922 850 - 3,900 cells/uL [facility] MONOCYTE ABSOLUTE 511 200 - 950 cells/uL [facility] EOSINOPHIL ABSOLUTE 173 15 - 500 cells/uL [facility] BASOPHILS ABSOLUTE 50 0 - 200 cells/uL [facility] NEUTROPHIL 63.1 % [facility] LYMPHOCYTES 26.7 % [facility] MONOCYTE 7.1 % [facility] EOSINOPHILS 2.4 % [facility] BASOPHILS 0.7 % [facility] Comment: Test Performed at: [facility] [address] [facility] [place] [address] Royal Gaitan MD Blood 12/15/2024 3:22 PM CDT 12/15/2024 3:22 PM CDT us Amari Castro MD HEMATOLOGY ORDERABLES Final Resu lt [facility] [phone] [email or web address] [address] [facility] [place] [address] * LIPID PANEL (12/15/2024 3:22 PM CDT) CHOLESTEROL 161 <200 mg/dL [email or web address] HDL 56 > OR = 50 mg/dL [facility] TRIGLYCERIDE 85 <150 mg/dL [facility] LDL CALCULATED 87 mg/dL (calc) [facility] Comment: Reference range: <100 Desirable range <100 mg/dL for primary prevention; <70 mg/dL for patients with CHD or diabetic patients with > or = 2 CHD risk factors. LDL-C is now calculated using the Camilo-Sanabria calculation, which is a validated novel method providing better accuracy than the Friedewald equation in the estimation of LDL-C. Camilo SS et al. JULIANA. 2013;310(19): 9200-8713 (http://education.GCD Systeme/faq/QON807) CHOL/HDL RATIO 2.9 <5.0 (calc) [email or web address] NON-HDL CHOLESTEROL 105 <130 mg/dL (calc) [email or web address] Comment: For patients with diabetes plus 1 major ASCVD risk factor, treating to a non-HDL-C goal of <100 mg/dL (LDL-C of <70 mg/dL) is considered a therapeutic option. Test Performed at: [facility] [address] [place] [address] Royal Gaitan MD Blood 12/15/2024 3:22 PM CDT 12/15/2024 3:22 PM CDT us Amari Castro MD CHEMISTRY ORDERABLES Final Resul t [facility] [phone] [facility] [address] [place] [address] * (ABNORMAL) COMPREHENSIVE METABOLIC PANEL (12/15/2024 3:22 PM CDT) GLUCOSE 97 65 - 99 mg/dL [email or web address] Comment: Fasting reference interval BUN 15 7 - 25 mg/dL [facility] CREATININE 0.61 0.60 - 1.00 mg/dL [facility] GFR 94 > OR = 60 mL/min/1. 73m2 [facility] BUN/CREAT RATIO SEE NOTE: 6 - 22 (calc) [facility] Comment: Not Reported: BUN and Creatinine are within reference range. SODIUM 139 135 - 146 mmol/L [facility] POTASSIUM 3.8 3.5 - 5.3 mmol/L [facility] CHLORIDE 99 98 - 110 mmol/L [facility] CO2 33(H) 20 - 32 mmol/L [facility] CALCIUM 9.1 8.6 - 10.4 mg/dL [facility] TOTAL PROTEIN 6.7 6.1 - 8.1 g/dL [facility] ALBUMIN 3.9 3.6 - 5.1 g/dL [facility] GLOBULIN 2.8 1.9 - 3.7 g/dL (calc) [facility] ALBUMIN/GLOBULIN RATIO 1.4 1.0 - 2.5 (calc) [facility] BILIRUBIN TOTAL 0.9 0.2 - 1.2 mg/dL [facility] ALKALINE PHOSPHATASE 102 37 - 153 U/L [facility] AST 23 10 - 35 U/L [facility] ALT 24 6 - 29 U/L [facility] Comment: Test Performed at: [facility] [id number] [place] [address] Royal Gaitan MD Blood 12/15/2024 3:22 PM CDT 12/15/2024 3:22 PM CDT us Amari Castro MD CHEMISTRY ORDERABLES Final Resul t [facility] [phone] [email or web address] [id number] [place] [phone] * MAMMO SCRN BILAT 3D MOOKIE W OR WO CAD (01/02/2024 2:44 PM CDT) Anatomical Region Laterality Modality Breast Bilateral Mammography Impressions 01/07/2024 3:37 PM CDT : No mammographic evidence of malignancy. BI-RADS ASSESSMENT: 1 - Negative RECOMMENDATION: Routine annual screening mammography. Narrative 01/07/2024 3:37 PM CDT EXAM: MAMMO SCRN BILAT 3D MOOKIE W OR WO CAD INDICATION: Screening COMPARISON: 06/25/2018 MAMMO SCRN BILAT MOBILE W OR WO CAD BREAST COMPOSITION: There are scattered areas of fibroglandular density. FINDINGS: RIGHT BREAST: There are no suspicious masses, calcifications, or areas of architectural distortion. LEFT BREAST: There are no suspicious masses, calcifications, or areas of architectural distortion. Joseph Brenner MD MAMMO ORDERABLES Final Result * OCCULT BLOOD IMMUNOASSAY, COLORECTAL SCREEN (04/20/2020 9:56 AM CDT) OCCULT BLOOD, STOOL Negative Negative 04/20/2020 10:41 AM CDT [facility] Stool STOOL SPECIMEN / Unknown Collection / Unknown 04/20/2020 9:56 AM CDT 04/20/2020 9:56 AM CDT Joseph Brenner MD BODY FLUIDS AND STOOLS Final Re sult [facility] CLIA# [id number] [address] [place] [address] from Last 3 Months or Most Recently Relevant to Health Maintenance Insurance [address] [id number] [facility] [address] [place] [id number] RX ug[place] Medicare Part D Advance Directives For more information, please contact: [phone] Documents on File Type Date Recorded 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
--- OUTSIDE RECORDS SUMMARY | 2025-02-13 16:18 | XMS_ITS | Encounter Summary ---
Author Organization [facility] Address [address] [facility] [place] [address] Care Team Providers Care Pharmacogeneticist Name Role Phone Joseph Brenner MD Primary Care Provider [phone] Encounter Details Date Type Department Care Team (Late st Contact Info) Description 12/30/2002 Outpatient Historical [facility] Medicine [place] [address] [phone] Betty Moses MD [address], [address] Social History Tobacco Use Types Packs/Day Years Used Date Smoking Tobacco: Never Assessed Comments Unknown Sex and Gender Information Value Date Recorded Sex Assigned at Not on file 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
--- OUTSIDE RECORDS SUMMARY | 2025-02-13 16:18 | XMS_ITS | Encounter Summary ---
Author Organization [facility] Address [address] [place] [facility] [place] [address] Care Team Providers Care Waterway Traffic Checker Name Role Phone Joseph Brenner MD Primary Care Provider Encounter Details Date Type Department Care Team (Latest Contact Info) Description 02/04/2004 Outpatient Historical [facility] Medicine [place] [address] [phone] Betty Moses MD [address], [address] COUGH (Primary Dx); ACUTE BRONCHITIS Social History Tobacco Use Types Packs/Day Years Used Date Smoking Tobacco: Never Assessed Comments Unknown Sex and Gender Information Value Date Recorded Sex Assigned at Not on file 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
--- OUTSIDE RECORDS SUMMARY | 2025-02-13 16:18 | XMS_ITS | Encounter Summary ---
Author Organization [facility] Address [address] [facility] [place] [address] Care Team Providers Care Nursing Tech Name Role Phone Joseph Brenner MD Primary Care Provider [phone] Encounter Details Date Type Department Care Team (Latest Contact Info) Description 01/28/2004 Outpatient Historical [facility] Medicine [address] [phone] Betty Moses MD [address], [address] ASTHMA UNSPECIFIED WITH EXAC (Primary Dx); COUGH; ACUTE BRONCHITIS Social History Tobacco Use Types Packs/Day Years Used Date Smoking Tobacco: Never Assessed Comments Unknown Sex and Gender Information Value Date Recorded Sex Assigned at Not on file 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
--- OUTSIDE RECORDS SUMMARY | 2025-02-13 16:18 | XMS_ITS | Encounter Summary ---
Author Organization [facility] Address [address] [place] [facility] [place] [address] Care Team Providers Care Assembler Motor Vehicle Name Role Phone Joseph Brenner MD Primary Care Provider [phone] Encounter Details Date Type Department Care Team (Late st Contact Info) Description 01/20/2003 Outpatient [facility] [address] [facility] 120 [place] [phone] Social History Tobacco Use Types Packs/Day Years Used Date Smoking Tobacco: Never Assessed Comments Unknown Sex and Gender Information Value Date Recorded Sex Assigned at Not on file 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
--- OUTSIDE RECORDS SUMMARY | 2025-02-13 16:18 | XMS_ITS | Encounter Summary ---
Author Organization [facility] Address [address] [facility] [place] [address] Care Team Providers Care Kettle Operator Name Role Phone Joseph Brenner MD Primary Care Provider [phone] Encounter Details Date Type Department Care Team (Late st Contact Info) Description 05/24/2005 Outpatient [facility] [address] [facility] 120 [place] [phone] Social History Tobacco Use Types Packs/Day Years Used Date Smoking Tobacco: Never Assessed Comments Unknown Sex and Gender Information Value Date Recorded Sex Assigned at Not on file 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
--- NOTE | 2025-02-13 16:58 | W.ED.SKABFB ---
HPI - Skin/Abscess/Foreign Bdy General: Chief complaint: Skin/Abscess/Foreign Body Stated complaint: yeast infection Time Seen by Provider: 02/13/25 16:39 History of Present Illness: Patient is a 74-year-old female presents to the ED with increasing redness to abdominal fold above suprapubic area with redness and pain. Patient stated she just wash this area prior to arrival. She states it is from the heat. She is out of her normal nystatin. Associated symptoms: Deny chills, fever(s), nausea or vomiting Related Data Home Medications ?Medication ?Instructions ?Recorded ?Confirmed albuterol sulfate 2.5 mg/3 mL 2.5 mg inhalation Q4H PRN 09/12/19 04/19/24 (0.083 %) solution for nebulization albuterol sulfate 90 mcg/actuation 2 puff inhalation Q6H PRN 09/12/19 04/19/24 aerosol inhaler (Ventolin HFA) fluticasone 100 mcg-salmeterol 50 1 puff inhalation BID 09/12/19 04/19/24 mcg/dose blistr powdr for inhalation (Advair Diskus) hydrochlorothiazide 25 mg tablet 25 mg PO DAILY 09/12/19 04/19/24 fluticasone propionate 50 2 spray intranasal DAILY 06/10/20 04/19/24 mcg/actuation nasal spray,suspension (Allergy Relief (fluticasone)) cetirizine 10 mg capsule (All Day 10 mg PO DAILY PRN 04/05/23 04/19/24 Allergy (cetirizine)) cholecalciferol (vitamin D3) 125 125 mcg PO DAILY 04/05/23 04/19/24 mcg (5,000 unit) capsule clonazepam 0.5 mg tablet 0.5 mg PO TID 04/05/23 04/19/24 losartan 50 mg tablet 50 mg PO DAILY 04/05/23 04/19/24 rosuvastatin 10 mg tablet 10 mg PO DAILY 04/05/23 04/19/24 tramadol 50 mg tablet 50 mg PO BID PRN 04/05/23 04/19/24 famotidine 20 mg tablet 20 mg PO DAILY 04/19/24 04/19/24 potassium chloride 20 mEq 20 meq PO DAILY 04/19/24 04/19/24 tablet,extended release(part/cryst) Previous Rx's ?Medication ?Instructions ?Recorded ibuprofen 800 mg tablet 800 mg PO Q8H #90 tabs 09/12/19 amlodipine 5 mg tablet 5 mg PO DAILY #30 tabs 05/14/22 fluoxetine 20 mg capsule 20 mg PO TID #30 caps 04/19/24 cephalexin 500 mg capsule 500 mg PO BID 10 days #20 caps 02/13/25 fluconazole 150 mg tablet 150 mg PO Q3D 3 doses #3 tabs 02/13/25 nystatin 100,000 unit/gram topical 1 applic topical TID #60 grams 02/13/25 powder Allergies Allergy/AdvReac Type Severity Reaction Status Date / Time benzonatate (From Tessalon Allergy Intermediate ADR-Agitate Verified 10/04/24 19:01 Maryam) d lisinopril Allergy Mild ALGY-Rash Verified 10/04/24 19:01 montelukast (From Singulair) Allergy Mild Unknown Verified 10/04/24 19:01 prednisone AdvReac Mild ADR-Irritab Verified 10/04/24 19:01 le Review of Systems General: Reports: 10 or more systems reviewed and unremarkable except in HPI and below Const: Denies: fever(s) or chills Eyes: Denies: change in vision or blurry vision ENMT: Denies: throat pain Card: Denies: chest pain or palpitations Resp: Denies: dyspnea or productive cough GI: Denies: abdominal pain, nausea or vomiting : Denies: flank pain or difficulty voiding Musc: Denies: neck pain, back pain or extremity pain Neuro: Denies: headache(s) or numbness in extremities Psych: Denies: anxiety or depression Endo: Denies: polyuria or polydipsia PFSH ED PFSH: Medical History (Updated 02/13/25 @ 17:10 by JABARI French) History of anxiety History of hypertension Asthma Surgical History Status post breast reduction History of hip surgery H/O: hysterectomy Social History Smoking and tobacco/nicotine status: former use of tobacco/nicotine Alcohol intake: current Alcohol intake frequency: holidays/special occasions only Substance/Drug Use: never Female Reproductive History: Spontaneous abortions: No Physical Exam Const: COMMON NORMALS: no acute distress, average body habitus and patient oriented x3 HENMT: COMMON NORMALS: normocephalic and atraumatic HEAD & SCALP: normocephalic and atraumatic Eye: COMMON NORMALS: Equal, round and reactive pupils present and EOMs intact bilaterally PUPIL: Yes Equal, round and reactive pupils present Neck/C-Spine: COMMON NORMALS: full ROM and no lymphadenopathy Lymph: LYMPHATIC: no lymphadenopathy noted Chest: COMMONS NORMALS: normal inspection of the chest and normal palpation of entire chest wall Resp: COMMON NORMALS: normal respiratory effort and No retractions Cardio: COMMON NORMALS: regular rate and regular rhythm RATE: regular rate RHYTHM: regular rhythm GI: COMMON NORMALS: Normal to inspection, nondistended, normoactive bowel sounds present : COMMON NORMALS: Yes no CVA tenderness BLADDER/KIDNEY EXAM: Yes no CVA tenderness Back/Pelvis: COMMON NORMALS: no CVA tenderness Extremity: COMMON NORMALS: normal to inspection, full ROM and capillary refill normal Neuro: COMMON NORMALS: patient oriented x3 Psych: COMMON NORMALS: mental status grossly normal, Normal thought process present and cooperative THOUGHT PROCESS: Normal thought process present Skin: COMMON NORMALS: no rashes or lesions noted and no wounds GENERAL SKIN EXAM: no rashes or lesions noted Course Vital Signs: Vital signs: Vital Signs Temperature 98.1 F 02/13/25 16:16 Pulse Rate 60 02/13/25 16:16 Respiratory Rate 16 02/13/25 16:16 Blood Pressure 133/65 02/13/25 16:16 Pulse Oximetry 96 02/13/25 16:16 Oxygen Delivery Me thod Room Air 02/13/25 16:16 MDM - Skin/Abscess/Foreign Bdy Medicial Decision Making Patient is 74-year-old female with complaints of red rash to abdominal skin fold above pubis. This appears clearly Celine. It is red, and I have educated patient on keeping this area dry, nystatin, and waking. To cover for secondary infection, will use cephalexin, however less likely associated with a cellulitis Medical Records I reviewed the patient's medical records. No radiology studies performed this visit Discharge Plan Discharge Patient Disposition: Home Clinical Impression: Candidal skin infection Condition: Stable Prescriptions: New cephalexin 500 mg capsule 500 mg PO BID 10 Days Qty: 20 0RF fluconazole 150 mg tablet 150 mg PO Q3D Qty: 3 0RF Rx Instructions: may repeat second, and third dose in 72 hrs after first dose if symptoms persist nystatin 100,000 unit/gram powder 1 applic topical TID Qty: 60 0RF No Action fluticasone propionate [Allergy Relief (fluticasone)] 50 mcg/actuation spray,suspension 2 spray INTRANASAL DAILY Rx Instructions: administer into each nostril albuterol sulfate [Ventolin HFA] 90 mcg/actuation HFA aerosol inhaler 2 puff INHALATION Q6H PRN fluticasone propion-salmeterol [Advair Diskus] 100-50 mcg/dose blister with device 1 puff INHALATION BID albuterol sulfate 2.5 mg /3 mL (0.083 %) solution for nebulization 2.5 mg INHALATION Q4H PRN hydrochlorothiazide 25 mg tablet 25 mg PO DAILY ibuprofen 800 mg tablet 800 mg PO Q8H Qty: 90 1RF tramadol 50 mg tablet 50 mg PO BID PRN clonazepam 0.5 mg tablet 0.5 mg PO TID All Day Allergy (cetirizine) 10 mg capsule 10 mg PO DAILY PRN losartan 50 mg tablet 50 mg PO DAILY rosuvastatin 10 mg tablet 10 mg PO DAILY cholecalciferol (vitamin D3) 125 mcg (5,000 unit) capsule 125 mcg PO DAILY potassium chloride 20 mEq tablet,ER particles/crystals 20 meq PO DAILY famotidine 20 mg tablet 20 mg PO DAILY fluoxetine 20 mg capsule 20 mg PO TID Qty: 30 0RF amlodipine 5 mg tablet 5 mg PO DAILY Qty: 30 0RF Discharge Orders: Discharge ED (Routine); Ordered 02/13/25 Ordered By: Radha Mckeon Referrals: Amari Castro MD [Primary Care Provider] Patient Instructions: Skin Yeast Infection (ED), Patient Portal & Lori Instructions Activity Restrictions/Additional Instructions: Clean area daily. Keep dry as discussed. Place nystatin powder to this fold 3 times daily, and cover with gauze barrier as I gave you. Take fluconazole x 1. Do not repeat the dose in 3 days unless you continue to have symptoms After treatment, this area can be kept dry, and cornstarch placed over as well as a gauze barrier Return to ED for worsening redness, temperature above 100.4 ?F Print Language: Romansh Coding Level of Care Code ED Tie Cutter for Chg Fwd
== END 2025-02-13 17:27 | disposition home or self-care (01) ==
PROVIDERS: Emergency Provider Physician Assistant; PCP Family Medicine
DX: B37.2 Candidiasis of skin and nail (principal); Z87.891 Personal history of nicotine dependence; I10 Essential (primary) hypertension
CPT/HCPCS: 99283